=== PATIENT | female | born 1985 | race Caucasian/White ===

== ENCOUNTER → 2016-05-03 | Outpatient (CLI) | payer OTHER ==
[~2016-05-03] MED LIST: ACET50TA PO; BUPR10TASR PO; MOTR200T44 PO; PRENTAB7 PO
[2016-05-03 13:47] LABS: BASO % 0.5 % (0.0-1.0); EOS # 0.3 K/mm3 (0.0-0.50); EOS % 3.5 % (0.0-3.0); LARGE UNSTAINED CELL # 0.1 K/mm3 (0.0-0.4); LARGE UNSTAINED CELL % 1.4 % (0.0-4.0); LYMPH # 1.6 K/mm3 (1.5-4.5); LYMPH % 18.1 % (24.0-44.0); MEAN CORPUSCULAR HEMOGLOBIN 26.6 pg (27.0-33.0); MEAN CORPUSCULAR HGB CONC 31.6 g/dl (32.0-36.5); MEAN CORPUSCULAR VOLUME 84.2 fl (80.0-96.0); MONO # 0.4 K/mm3 (0.0-0.8); NEUTROPHILS # 6.3 K/mm3 (1.8-7.7); NEUTROPHILS % 72.5 % (36.0-66.0); PLATELET COUNT, AUTOMATED 331 k/mm3 (150-450); RED CELL DISTRIBUTION WIDTH 13.8 % (11.5-14.5); WHITE BLOOD COUNT 8.7 K/mm3 (4.0-10.0)
[2016-05-03 14:07] LABS: ALBUMIN 3.6 GM/DL (3.2-5.2); ALBUMIN/GLOBULIN RATIO 1.03 (1.00-1.93); ALKALINE PHOSPHATASE 133 U/L (45-117); ALT/SGPT 23 U/L (12-78); ANION GAP 10 MEQ/L (8-16); AST/SGOT 14 U/L (15-37); BILIRUBIN,TOTAL 0.3 MG/DL (0.2-1.0); BLOOD UREA NITROGEN 12 MG/DL (7-18); CALCIUM LEVEL 8.8 MG/DL (8.5-10.1); CARBON DIOXIDE LEVEL 26 MEQ/L (21-32); CHLORIDE LEVEL 105 MEQ/L (98-107); GLOMERULAR FILTRATION RATE > 60.0 (>60); GLUCOSE, FASTING 109 MG/DL (70-105); POTASSIUM SERUM 3.9 MEQ/L (3.5-5.1); SODIUM LEVEL 141 MEQ/L (136-145); TOTAL PROTEIN 7.1 GM/DL (6.4-8.2)
== END ==
LOC: M WUC 12:31
PROVIDERS: ATTEND Surgery
DX: Z01.812 Encounter for preprocedural laboratory examination (principal)

== ENCOUNTER → 2016-06-17 | Outpatient (CLI) | payer OTHER ==
[2016-06-17 15:17] LABS: BASO % 0.6 % (0.0-1.0); EOS # 0.5 K/mm3 (0.0-0.50); EOS % 8.4 % (0.0-3.0); LARGE UNSTAINED CELL # 0.1 K/mm3 (0.0-0.4); LARGE UNSTAINED CELL % 1.2 % (0.0-4.0); LYMPH # 1.4 K/mm3 (1.5-4.5); LYMPH % 20.5 % (24.0-44.0); MEAN CORPUSCULAR HEMOGLOBIN 27.7 pg (27.0-33.0); MEAN CORPUSCULAR HGB CONC 32.2 g/dl (32.0-36.5); MEAN CORPUSCULAR VOLUME 86.1 fl (80.0-96.0); MONO # 0.4 K/mm3 (0.0-0.8); MONO % 6.1 % (0.0-5.0); NEUTROPHILS % 63.2 % (36.0-66.0); PLATELET COUNT, AUTOMATED 229 k/mm3 (150-450); RED CELL DISTRIBUTION WIDTH 15.2 % (11.5-14.5); WHITE BLOOD COUNT 6.3 K/mm3 (4.0-10.0)
[2016-06-17 15:36] LABS: ALBUMIN/GLOBULIN RATIO 1.33 (1.00-1.93); ALKALINE PHOSPHATASE 98 U/L (45-117); ALT/SGPT 30 U/L (12-78); ANION GAP 12 MEQ/L (8-16); AST/SGOT 16 U/L (15-37); BILIRUBIN,TOTAL 0.5 MG/DL (0.2-1.0); BLOOD UREA NITROGEN 10 MG/DL (7-18); CALCIUM LEVEL 9.4 MG/DL (8.5-10.1); CARBON DIOXIDE LEVEL 24 MEQ/L (21-32); CHLORIDE LEVEL 106 MEQ/L (98-107); FERRITIN 15 NG/ML (8-252); GLOMERULAR FILTRATION RATE > 60.0 (>60); GLUCOSE, FASTING 75 MG/DL (70-105); MAGNESIUM LEVEL 1.8 MG/DL (1.8-2.4); PERCENT SATURATION 12.2 % (13.2-37.4); PHOSPHORUS LEVEL 3.2 MG/DL (2.5-4.9); POTASSIUM SERUM 3.8 MEQ/L (3.5-5.1); SODIUM LEVEL 142 MEQ/L (136-145); TOTAL IRON BINDING CAPACITY 296 UG/DL (250-450)
[2016-06-17 15:44] LABS: VITAMIN B12 LEVEL 1278 PG/ML (247-911)
[2016-06-18 11:12] LABS: PRETREATED FOLATE FOR RBCFOL 8.5 NG/ML
== END ==
LOC: M LAB 14:36
PROVIDERS: ATTEND Surgery
DX: K91.2 Postsurgical malabsorption, not elsewhere classified (principal); Z98.84 Bariatric surgery status

== ENCOUNTER 2016-08-03 11:41 | Emergency (ER) | payer MEDICAID, OTHER ==
[~2016-08-03] VITALS: Ht 165.1 cm; Wt 95.7 kg
[2016-08-03] MEDS ORDERED: VITA100T20 PO (11:57)
[2016-08-03] MEDS ORDERED: EFFE37.527 PO (11:57)
[2016-08-03] MEDS ORDERED: CALTTAB5 PO (11:57)
[2016-08-03] MEDS ORDERED: MULT1TAB18 PO (11:57)
[2016-08-03] MEDS ORDERED: [UNRECOGNIZED DRUG - CODE] PO (11:57)
[2016-08-03] MEDS ORDERED: NS 1,000 ML IV ONE (12:45)
[2016-08-03] MEDS ORDERED: ACETAMINOPHEN 325 MG TAB PO ONE (12:45)
[2016-08-03 13:31] LABS: BASO % 0.5 % (0.0-1.0); EOS # 0.1 K/mm3 (0.0-0.50); EOS % 1.5 % (0.0-3.0); LARGE UNSTAINED CELL # 0.1 K/mm3 (0.0-0.4); LARGE UNSTAINED CELL % 1.4 % (0.0-4.0); LYMPH # 0.7 K/mm3 (1.5-4.5); LYMPH % 7.5 % (24.0-44.0); MEAN CORPUSCULAR HEMOGLOBIN 29.9 pg (27.0-33.0); MEAN CORPUSCULAR HGB CONC 33.1 g/dl (32.0-36.5); MEAN CORPUSCULAR VOLUME 90.4 fl (80.0-96.0); MONO # 0.7 K/mm3 (0.0-0.8); MONO % 7.1 % (0.0-5.0); NEUTROPHILS # 7.8 K/mm3 (1.8-7.7); PLATELET COUNT, AUTOMATED 187 k/mm3 (150-450); RED CELL DISTRIBUTION WIDTH 15.3 % (11.5-14.5); WHITE BLOOD COUNT 9.5 K/mm3 (4.0-10.0)
[2016-08-03 13:43] LABS: INR 1.19
[2016-08-03 13:54] LABS: CONTROL LINE HCG INT CTR LINE PRESENT
[2016-08-03 14:02] LABS: ALBUMIN/GLOBULIN RATIO 0.94 (1.00-1.93); ALKALINE PHOSPHATASE 97 U/L (45-117); ALT/SGPT 16 U/L (12-78); AMYLASE 21 U/L (25-115); ANION GAP 7 MEQ/L (8-16); AST/SGOT 13 U/L (15-37); BILIRUBIN,DIRECT 0.4 MG/DL (0.0-0.2); BLOOD UREA NITROGEN 7 MG/DL (7-18); CALCIUM LEVEL 8.2 MG/DL (8.5-10.1); CARBON DIOXIDE LEVEL 27 MEQ/L (21-32); CHLORIDE LEVEL 103 MEQ/L (98-107); CREATININE FOR GFR 0.67 MG/DL (0.55-1.02); GLOMERULAR FILTRATION RATE > 60.0 (>60); GLUCOSE, FASTING 92 MG/DL (70-105); POTASSIUM SERUM 3.7 MEQ/L (3.5-5.1); SODIUM LEVEL 137 MEQ/L (136-145); TOTAL PROTEIN 6.2 GM/DL (6.4-8.2)
--- NOTE | 2016-08-03 14:56 | REP ---
CT ABDOMEN/PELVIS WITHOUT CONTRAST: CT abdomen/pelvis performed without oral or IV contrast. Sagittal and coronal reconstruction images performed. Comparison made with prior CT of 01/27/2010. Visualized lung bases demonstrate no infiltrate. Liver demonstrates two hypodense nodules in the left lobe, the larger of the two is 1.2 cm in diameter. These nodules were not seen on the prior study. The spleen, adrenals, pancreas, and kidneys appear grossly unremarkable. There is no abdominal aortic aneurysm. There is no adenopathy. There is no free air. There is no bowel wall thickening. There appears to be a small cystic structure in the right ovary possibly up to 2.8 cm in diameter. There is a small amount of free fluid in the pelvis. An IUD is seen in the uterus. The urinary bladder is not well distended and not well evaluated. IMPRESSION: Two hypodense nodules in the left lobe of the liver are new compared to prior study of 2009. The largest measures 1.2 cm in diameter. Recommend ultrasound to further evaluate. No adenopathy. No free air. No bowel wall thickening. Small amount of free fluid in the pelvis. There appears to be a small cystic structure in the right ovary, maximally 2.8 cm. Signed by Irwin Portillo MD 08/05/2016 06:58 P
[2016-08-03] MEDS ORDERED: LevoFLOXacin IV 750 MG in APPROPRIATE DILUENT 1 EA IV ONE (15:15)
[2016-08-03 16:06] VITALS: BP 134/87
[2016-08-03] MEDS ORDERED: LEVA750T PO (16:06)
--- NOTE | 2016-08-03 16:30 | REP ---
PELVIC ULTRASOUND: Real-time sonographic evaluation of the pelvis is performed utilizing transabdominal and endovaginal technique. The urinary bladder is collapsed. The uterus measures 9.1 x 4.6 x 6.6 cm. IUD is seen in the endometrial canal. The right ovary measures 4.3 x 3.2 x 3.8 cm. There is a simple cyst of the right ovary 3.2 x 2.6 x 3.1 cm. Left ovary measures 4.0 x 2.4 x 3.1 cm and contains a complex follicle 2.0 x 1.4 x 1.5 cm. There is mild free fluid. There is no ovarian torsion with blood flow seen in each ovary with duplex Doppler evaluation, RI right ovary 0.38 and left ovary 0.39. IMPRESSION: Simple right ovarian cyst 3.2 cm in diameter. Complex dominant follicle left ovary 2.0 cm in diameter. No torsion. Mild free fluid. Signed by Irwin Portillo MD 08/05/2016 06:59 P
--- NOTE | 2016-08-08 15:10 | ED PDOC ---
Post-Departure Follow-Up colby hatch faxed formal report of ct abd/p for fu Patti Gonsales MD Aug 08, 2016 15:10
== END 2016-08-03 17:16 | disposition home or self-care (01) ==
LOC: M ED 12:53
DX: N83.201 Unspecified ovarian cyst, right side (principal); N10 Acute pyelonephritis; F41.9 Anxiety disorder, unspecified; F33.9 Major depressive disorder, recurrent, unspecified; Z98.84 Bariatric surgery status; Z79.899 Other long term (current) drug therapy; Z88.5 Allergy status to narcotic agent; Z88.7 Allergy status to serum and vaccine; Z91.041 Radiographic dye allergy status; J30.89 Other allergic rhinitis

== ENCOUNTER → 2016-08-16 | Outpatient (CLI) | payer OTHER ==
[~2016-08-16] MED LIST changes: +CALTTAB5 PO; +EFFE37.527 PO; +LEVA750T PO; +MULT1TAB18 PO; +VITA100T20 PO; +[UNRECOGNIZED DRUG - CODE] PO
--- NOTE | 2016-08-16 07:33 | REP ---
Clinical: Follow-up indeterminate liver lesions by CT. Comparison: CT dated 08/03/2016. Findings: Evaluation of the liver is relatively normal with normal parenchymal echogenicity, contour and size. The two lesions identified on CT are not visualized by ultrasound and appear relatively hyperechoic and most compatible with hemangiomas measuring 12.9 mm maximal diameter in the medial segment left lobe and 12.8 mm maximal diameter in the medial segment left lobe adjacent to the portal vein. Pancreas is normal in appearance and echogenicity without focal pancreatic lesion identified. The gallbladder is normal and without gallstones, wall thickening, or pericholecystic fluid. No biliary ductal dilatation is appreciated and the common bile duct measures 3.9 mm diameter. Right kidney is normal in reniform shape and appearance without hydronephrosis, and measures 11.4 x 5.6 x 4.7 cm. No ascites in the visualized right upper quadrant. Visualized portions of the abdominal aorta normal. Impression: 1. Previously identified indeterminate lesions by CT correspond to hyperechoic masses most compatible with benign hemangiomas. 2. Remainder of the right upper quadrant abdominal ultrasound appears normal. Signed by Maico Mcneil MD 08/16/2016 07:24 A
== END ==
LOC: M RAD 06:34
PROVIDERS: ATTEND Nurse Practitioner Family
DX: R93.2 Abnormal findings on diagnostic imaging of liver and biliary tract (principal)

== ENCOUNTER → 2016-10-18 | Outpatient (REF) | payer OTHER ==
[~2016-10-18] MED LIST changes: -LEVA750T PO; +LEVA750T7 PO
== END ==
LOC: M SFHCPLAZ 13:47
PROVIDERS: ATTEND Nurse Practitioner Family
DX: Z00.00 Encounter for general adult medical examination without abnormal findings (principal); E78.4 Other hyperlipidemia; Z53.8 Procedure and treatment not carried out for other reasons

== ENCOUNTER → 2016-12-17 | Outpatient (CLI) | payer OTHER | LOC: M LAB 07:49 | PROVIDERS: ATTEND Nurse Practitioner Family | DX: Z00.00 Encounter for general adult medical examination without abnormal findings (principal) ==

== ENCOUNTER → 2016-12-17 | Outpatient (CLI) | payer OTHER ==
[2016-12-17 08:29] LABS: BASO % 0.5 % (0.0-1.0); EOS # 0.3 10^3/uL (0.0-0.50); EOS % 4.4 % (0.0-3.0); LYMPH # 1.8 10^3/uL (1.5-4.5); LYMPH % 31.8 % (24.0-44.0); MEAN CORPUSCULAR HEMOGLOBIN 30.6 pg (27.0-33.0); MEAN CORPUSCULAR HGB CONC 33.3 g/dl (32.0-36.5); MEAN CORPUSCULAR VOLUME 91.7 fl (80.0-96.0); MONO # 0.4 10^3/uL (0.0-0.8); MONO % 7.5 % (0.0-5.0); NEUTROPHILS # 3.1 10^3/uL (1.8-7.7); NEUTROPHILS % 55.8 % (36.0-66.0); PLATELET COUNT, AUTOMATED 324 10^3/uL (150-450); RED CELL DISTRIBUTION WIDTH 12.8 % (11.5-14.5); WHITE BLOOD COUNT 5.6 10^3/uL (4.0-10.0)
[2016-12-17 09:09] LABS: ALBUMIN 3.8 GM/DL (3.2-5.2); ALBUMIN/GLOBULIN RATIO 1.19 (1.00-1.93); ALKALINE PHOSPHATASE 118 U/L (45-117); ALT/SGPT 25 U/L (12-78); ANION GAP 8 MEQ/L (8-16); AST/SGOT 13 U/L (15-37); BILIRUBIN,TOTAL 0.6 MG/DL (0.2-1.0); BLOOD UREA NITROGEN 9 MG/DL (7-18); CALCIUM LEVEL 9.7 MG/DL (8.5-10.1); CARBON DIOXIDE LEVEL 30 MEQ/L (21-32); CHLORIDE LEVEL 104 MEQ/L (98-107); CREATININE FOR GFR 0.79 MG/DL (0.55-1.02); FERRITIN 23 NG/ML (8-252); GLOMERULAR FILTRATION RATE > 60.0 (>60); GLUCOSE, FASTING 81 MG/DL (70-105); MAGNESIUM LEVEL 2.2 MG/DL (1.8-2.4); PERCENT SATURATION 42.8 % (13.2-45.0); PHOSPHORUS LEVEL 3.9 MG/DL (2.5-4.9); POTASSIUM SERUM 4.4 MEQ/L (3.5-5.1); SODIUM LEVEL 142 MEQ/L (136-145); TOTAL IRON BINDING CAPACITY 299 UG/DL (250-450)
[2016-12-17 11:03] LABS: VITAMIN B12 LEVEL 889 PG/ML (247-911)
[2016-12-17 11:40] LABS: PRETREATED FOLATE FOR RBCFOL 12.4 NG/ML
== END ==
LOC: M LAB 07:47
PROVIDERS: ATTEND Surgery
DX: K91.2 Postsurgical malabsorption, not elsewhere classified (principal)

== ENCOUNTER → 2016-12-27 | Outpatient (REF) | payer MEDICAID, OTHER | LOC: EEVIPCON 15:38 → M SFHCPLAZ 15:38 | PROVIDERS: ATTEND Nurse Practitioner Adult Health | DX: R35.0 Frequency of micturition (principal) ==

== ENCOUNTER → 2017-01-13 | Outpatient (REF) | payer OTHER, MEDICAID | LOC: M SFHCPLAZ 15:38 | PROVIDERS: ATTEND Nurse Practitioner Family | DX: N39.0 Urinary tract infection, site not specified (principal) ==

== ENCOUNTER → 2017-01-18 | Outpatient (CLI) | payer OTHER ==
--- NOTE | 2017-01-18 16:51 | REP ---
Clinical: Hematuria. Technique: Real time hoff scale ultrasound examination using curved array transducer. Findings: Bilateral kidneys are normal in contour, size, echogenicity and reniform shape without hydronephrosis, nephrolithiasis, cystic or renal mass lesion. Perinephric fluid collections are identified. Right kidney measures 11.1 x 4.8 x 4.2 cm. Left kidney measures 10.5 x 5.3 x 5.6 cm. The bladder is normal in appearance without wall thickening or mass lesion. Bilateral ureteral jets are identified. Prevoid volume equals 103 ml. Postvoid volume equals 4 ml. Postvoid residual equals 3.8 %. Impression: Normal renal and bladder ultrasound. Signed by Maico Mcneil MD 01/18/2017 04:43 P
== END ==
LOC: M RAD 13:57
PROVIDERS: ATTEND Nurse Practitioner Family
DX: N39.0 Urinary tract infection, site not specified (principal); R31.9 Hematuria, unspecified

== ENCOUNTER → 2017-02-11 | Outpatient (REF) | payer OTHER ==
[~2017-02-11] MED LIST changes: +EFFE75CA75 PO; +LEVA1TAB PO; +MACR100C43 PO; +MECL-68 PO
[2017-02-11 13:39] LABS: MICROSCOPIC EXAM PERFORMED
[2017-02-11 13:40] LABS: BACTERIA, URINE LARGE AMOUNT; HYALINE CAST, URINE NONE SEEN /lpf (0-1); SQUAMOUS EPITHELIAL CELL URINE LARGE AMOUNT /hpf (SMALL AMT); WBC, URINE 30-40 /hpf (0-3)
[2017-02-11 13:41] LABS: CALCIUM OXALATE CRYSTALS,URINE SMALL AMOUNT /hpf
[2017-02-13 00:06] LABS: Candida species Negative (Negative); Gardnerella vaginalis Negative (Negative); Trichamonas vaginalis Negative (Negative)
== END ==
LOC: M SMT 13:26
PROVIDERS: ATTEND Specialist
DX: N39.0 Urinary tract infection, site not specified (principal)

== ENCOUNTER 2017-02-16 09:35 | Emergency (ER) | payer OTHER ==
[~2017-02-16 09:35] MED LIST changes: -EFFE75CA75 PO; -LEVA1TAB PO; -MACR100C43 PO; -MECL-68 PO
[2017-02-16] MEDS ORDERED: MACR100C43 PO (09:45)
[2017-02-16] MEDS ORDERED: EFFE75CA75 PO (09:47)
[2017-02-16] MEDS ORDERED: MECLIZINE 25 MG TABLET PO ONE (10:30)
[2017-02-16] MEDS ORDERED: ONDANSETRON 4MG/2ML VIAL (J2405) IV ONE (10:30)
[2017-02-16 10:38] LABS: BASO # 0.1 10^3/uL (0.0-0.2); BASO % 0.7 % (0.0-1.0); EOS # 0.5 10^3/uL (0.0-0.50); EOS % 6.8 % (0.0-3.0); IMMATURE GRANULOCYTE % 0.3 % (0-0); LYMPH # 1.4 10^3/uL (1.5-4.5); LYMPH % 18.7 % (24.0-44.0); MEAN CORPUSCULAR HEMOGLOBIN 30.2 pg (27.0-33.0); MEAN CORPUSCULAR HGB CONC 32.9 g/dl (32.0-36.5); MONO # 0.6 10^3/uL (0.0-0.8); MONO % 8.8 % (0.0-5.0); NEUTROPHILS # 4.7 10^3/uL (1.8-7.7); NEUTROPHILS % 64.7 % (36.0-66.0); PLATELET COUNT, AUTOMATED 295 10^3/uL (150-450); RED CELL DISTRIBUTION WIDTH 12.7 % (11.5-14.5); WHITE BLOOD COUNT 7.3 10^3/uL (4.0-10.0)
[2017-02-16 10:44] LABS: ANION GAP 7 MEQ/L (8-16); BLOOD UREA NITROGEN 10 MG/DL (7-18); CALCIUM LEVEL 8.7 MG/DL (8.5-10.1); CARBON DIOXIDE LEVEL 27 MEQ/L (21-32); CHLORIDE LEVEL 108 MEQ/L (98-107); CREATININE FOR GFR 0.67 MG/DL (0.55-1.02); GLOMERULAR FILTRATION RATE > 60.0 (>60); GLUCOSE, FASTING 40 MG/DL (70-105); POTASSIUM SERUM 3.6 MEQ/L (3.5-5.1); SODIUM LEVEL 142 MEQ/L (136-145)
[2017-02-16] MEDS ORDERED: LevoFLOXacin IV 500 MG in APPROPRIATE DILUENT 1 EA IV ONE (11:00)
[2017-02-16] MEDS ORDERED: MECL-68 PO (12:21)
[2017-02-16] MEDS ORDERED: LEVA1TAB PO (12:21)
[2017-02-16 12:35] VITALS: BP 141/97
== END 2017-02-16 12:42 | disposition home or self-care (01) ==
LOC: EDBD 09:35 → M ED 09:35
DX: N39.0 Urinary tract infection, site not specified (principal); F33.9 Major depressive disorder, recurrent, unspecified; Z87.448 Personal history of other diseases of urinary system; Z79.899 Other long term (current) drug therapy; Z91.041 Radiographic dye allergy status; Z88.5 Allergy status to narcotic agent; Z91.048 Other nonmedicinal substance allergy status; Z88.7 Allergy status to serum and vaccine
CPT/HCPCS: 80048; 85025; 96374; 96375; 99284; J1956

== ENCOUNTER → 2017-03-25 | Outpatient (REF) | payer OTHER, MEDICAID ==
[2017-03-25 20:14] LABS: HYALINE CAST, URINE NONE SEEN /lpf (0-1); RBC, URINE NONE SEEN /hpf (0-3); SQUAMOUS EPITHELIAL CELL URINE SMALL AMOUNT /hpf (SMALL AMT)
[2017-03-25 20:15] LABS: BACTERIA, URINE SMALL AMOUNT; MICROSCOPIC EXAM PERFORMED
== END ==
LOC: M SMT 17:04
DX: N39.0 Urinary tract infection, site not specified (principal)

== ENCOUNTER → 2017-07-04 | Outpatient (CLI) | payer OTHER ==
[2017-07-04 18:02] LABS: BASO # 0.1 10^3/uL (0.0-0.2); BASO % 0.8 % (0.0-1.0); EOS # 0.3 10^3/uL (0.0-0.50); EOS % 3.5 % (0.0-3.0); HEMATOCRIT 43.4 % (36.0-47.0); HEMOGLOBIN 14.1 g/dl (12.0-15.5); IMMATURE GRANULOCYTE % 0.3 % (0-3.0); LYMPH # 2.1 10^3/uL (1.5-4.5); LYMPH % 23.5 % (24.0-44.0); MEAN CORPUSCULAR HEMOGLOBIN 30.6 pg (27.0-33.0); MEAN CORPUSCULAR HGB CONC 32.5 g/dl (32.0-36.5); MEAN CORPUSCULAR VOLUME 94.1 fl (80.0-96.0); MONO # 0.6 10^3/uL (0.0-0.8); MONO % 6.1 % (0.0-5.0); NEUTROPHILS # 5.9 10^3/uL (1.8-7.7); NEUTROPHILS % 65.8 % (36.0-66.0); PLATELET COUNT, AUTOMATED 325 10^3/uL (150-450); RED BLOOD COUNT 4.61 10^6/uL (4.00-5.40); RED CELL DISTRIBUTION WIDTH 12.4 % (11.5-14.5)
[2017-07-04 18:03] LABS: HEMATOCRIT 43.4 % (36.0-47.0)
[2017-07-04 18:19] LABS: ESTIMATED AVERAGE GLUCOSE 103 MG/DL (60-110); HEMOGLOBIN A1c 5.2 %
[2017-07-04 19:10] LABS: ALBUMIN 3.8 GM/DL (3.2-5.2); ALBUMIN/GLOBULIN RATIO 1.23 (1.00-1.93); ALKALINE PHOSPHATASE 108 U/L (45-117); ALT/SGPT 28 U/L (12-78); ANION GAP 7 MEQ/L (8-16); AST/SGOT 18 U/L (7-37); BILIRUBIN,TOTAL 0.3 MG/DL (0.2-1.0); BLOOD UREA NITROGEN 12 MG/DL (7-18); CALCIUM LEVEL 8.8 MG/DL (8.5-10.1); CARBON DIOXIDE LEVEL 31 MEQ/L (21-32); CHLORIDE LEVEL 108 MEQ/L (98-107); CREATININE FOR GFR 0.78 MG/DL (0.55-1.30); FERRITIN 13 NG/ML (8-252); GLOMERULAR FILTRATION RATE > 60.0 (>60); GLUCOSE, FASTING 94 MG/DL (70-100); IRON (FE) 83 UG/DL (50-170); PERCENT SATURATION 25.2 % (13.2-45.0); PHOSPHORUS LEVEL 2.9 MG/DL (2.5-4.9); POTASSIUM SERUM 3.9 MEQ/L (3.5-5.1); SODIUM LEVEL 146 MEQ/L (136-145); TOTAL IRON BINDING CAPACITY 329 UG/DL (250-450); TOTAL PROTEIN 6.9 GM/DL (6.4-8.2)
[2017-07-04 19:12] LABS: TOTAL 25(OH) VITAMIN D 40.3 NG/ML (30.0-100.0); VITAMIN B12 LEVEL 611 PG/ML (247-911)
[2017-07-05 11:51] LABS: PRETREATED FOLATE FOR RBCFOL 12.5 NG/ML; RBC FOLATE 604.8 NG/ML (280-791)
== END ==
LOC: M LAB 17:21
DX: K91.2 Postsurgical malabsorption, not elsewhere classified (principal)
CPT/HCPCS: 83550

== ENCOUNTER → 2017-07-12 | Outpatient (REF) | payer OTHER, MEDICAID | LOC: M LAB REF 10:15 | DX: J02.9 Acute pharyngitis, unspecified (principal) ==

== ENCOUNTER → 2018-01-04 | Outpatient (REF) | payer MEDICAID ==
[2018-01-04 19:47] LABS: BACTERIA, URINE AUTO NEGATIVE (NEGATIVE); CALCIUM OXALATE CRYSTALS LARGE; MUCUS, URINE SMALL (NEGATIVE); RBC, URINE AUTO 7 /HPF (0-3); SQUAMOUS EPITHELIAL CELL UR AU 0 /HPF (0-6); WBC, URINE AUTO 3 /HPF (0-3)
== END ==
LOC: M SMT 17:03
DX: N39.0 Urinary tract infection, site not specified (principal)
CPT/HCPCS: 81015

== ENCOUNTER → 2018-02-10 | Outpatient (REF) | payer MEDICAID ==
[2018-02-10 19:42] LABS: CHLAMYDIA DNA AMPLIFICATION NEGATIVE (NEGATIVE); GC DNA AMPLIFICATION NEGATIVE (NEGATIVE)
[2018-02-16 14:24] LABS: HPV HYBRID CAPTURE II Negative (Negative)
== END ==
LOC: M LAB REF 16:55
DX: Z12.4 Encounter for screening for malignant neoplasm of cervix (principal); Z11.3 Encounter for screening for infections with a predominantly sexual mode of transmission
CPT/HCPCS: 87591

== ENCOUNTER → 2018-03-31 | Outpatient (CLI) | payer OTHER ==
[~2018-03-31] MED LIST changes: -ACET50TA PO; +EFFE37.5 PO; -EFFE37.527 PO; +EFFE75CA2 PO; +LEVA250T13 PO; +MACR100C43 PO; +MAPA500T2 PO; +MECL-68 PO
[2018-03-31 09:02] LABS: HEMATOCRIT 44.1 % (36.0-47.0); HEMOGLOBIN 14.5 g/dl (12.0-15.5); MEAN CORPUSCULAR HEMOGLOBIN 30.1 pg (27.0-33.0); MEAN CORPUSCULAR HGB CONC 32.9 g/dl (32.0-36.5); MEAN CORPUSCULAR VOLUME 91.5 fl (80.0-96.0); PLATELET COUNT, AUTOMATED 308 10^3/uL (150-450); RED BLOOD COUNT 4.82 10^6/uL (4.00-5.40); WHITE BLOOD COUNT 6.7 10^3/uL (4.0-10.0)
[2018-03-31 09:36] LABS: ALBUMIN 3.8 GM/DL (3.2-5.2); ALT/SGPT 30 U/L (12-78); BILIRUBIN,TOTAL 0.4 MG/DL (0.2-1.0); BLOOD UREA NITROGEN 8 MG/DL (7-18); CARBON DIOXIDE LEVEL 29 MEQ/L (21-32); CHLORIDE LEVEL 105 MEQ/L (98-107); CHOLESTEROL LEVEL 183 MG/DL (<200); CREATININE FOR GFR 0.64 MG/DL (0.55-1.30); FREE T4 0.93 NG/DL (0.76-1.46); GLOMERULAR FILTRATION RATE > 60.0 (>60); GLUCOSE, FASTING 83 MG/DL (70-100); HDL CHOLESTEROL 57 MG/DL (>40); LDL CHOLESTEROL 112 MG/DL (<100); NON-HDL-C 126 MG/DL; POTASSIUM SERUM 4.7 MEQ/L (3.5-5.1); SODIUM LEVEL 142 MEQ/L (136-145); TOTAL PROTEIN 6.4 GM/DL (6.4-8.2); TRIGLYCERIDES LEVEL 72 MG/DL (<150)
== END ==
LOC: M LAB 07:49
PROVIDERS: ATTEND Nurse Practitioner Family
DX: Z00.00 Encounter for general adult medical examination without abnormal findings (principal)

== ENCOUNTER → 2018-11-29 | Outpatient (REF) | payer OTHER ==
[~2018-11-29] MED LIST changes: -VITA100T20 PO; +VITA100T51 PO
[2018-11-29 12:39] LABS: HEMOGLOBIN 14.3 g/dl (12.0-15.5); MEAN CORPUSCULAR HEMOGLOBIN 30.8 pg (27.0-33.0); MEAN CORPUSCULAR HGB CONC 32.5 g/dl (32.0-36.5); MEAN CORPUSCULAR VOLUME 94.8 fl (80.0-96.0); PLATELET COUNT, AUTOMATED 280 10^3/uL (150-450); RED BLOOD COUNT 4.64 10^6/uL (4.00-5.40); WHITE BLOOD COUNT 5.5 10^3/uL (4.0-10.0)
[2018-11-29 13:21] LABS: ALBUMIN 3.6 GM/DL (3.2-5.2); ALT/SGPT 17 U/L (12-78); BILIRUBIN,TOTAL 0.5 MG/DL (0.2-1.0); BLOOD UREA NITROGEN 11 MG/DL (7-18); CALCIUM LEVEL 8.8 MG/DL (8.5-10.1); CARBON DIOXIDE LEVEL 29 MEQ/L (21-32); CHLORIDE LEVEL 105 MEQ/L (98-107); CHOLESTEROL LEVEL 174 MG/DL (<200); CHOLESTEROL RISK RATIO 2.949 (<5); CREATININE FOR GFR 0.75 MG/DL (0.55-1.30); FERRITIN 11 NG/ML (8-252); FREE T4 0.82 NG/DL (0.76-1.46); GLOMERULAR FILTRATION RATE > 60.0 (>60); GLUCOSE, FASTING 77 MG/DL (70-100); HDL CHOLESTEROL 59 MG/DL (>40); IRON (FE) 101 UG/DL (50-170); LDL CHOLESTEROL 102 MG/DL (<100); NON-HDL-C 115 MG/DL; PERCENT SATURATION 31.1 % (13.2-45.0); POTASSIUM SERUM 4.6 MEQ/L (3.5-5.1); SODIUM LEVEL 141 MEQ/L (136-145); TOTAL IRON BINDING CAPACITY 325 UG/DL (250-450); TOTAL PROTEIN 6.5 GM/DL (6.4-8.2); TRIGLYCERIDES LEVEL 66 MG/DL (<150)
[2018-11-29 13:24] LABS: TOTAL 25(OH) VITAMIN D 29.8 NG/ML (30.0-100.0); VITAMIN B12 LEVEL 657 PG/ML (247-911)
== END ==
LOC: M SFHCPLAZ 08:50 → M SFHCADAM 08:53
PROVIDERS: ATTEND Nurse Practitioner Family
DX: Z00.00 Encounter for general adult medical examination without abnormal findings (principal); E78.5 Hyperlipidemia, unspecified; Z98.84 Bariatric surgery status; E55.9 Vitamin D deficiency, unspecified; R53.83 Other fatigue

== ENCOUNTER → 2019-08-28 | Outpatient (CLI) | payer OTHER, MEDICAID ==
[~2019-08-28] MED LIST changes: -MECL-68 PO; +MECL1TAB31 PO
--- NOTE | 2019-08-28 14:20 | REPPI ---
RIGHT WRIST SERIES: Four views. HISTORY: Neuropathy. FINDINGS: Four views right wrist demonstrate overall normal mineralization. There is a small cyst in the triquetrum. Joint spaces are preserved. Periarticular soft tissues are unremarkable. IMPRESSION: Negative radiographs of the right wrist. Electronically Signed by Barry Vásquez MD 08/28/2019 05:15 P
--- NOTE | 2019-08-28 14:20 | REPPI ---
CERVICAL SPINE SERIES: Seven views. HISTORY: Neuropathy. FINDINGS: Lateral views done in flexion/extension and neutral position show preserved vertebral body heights and normal alignment. Disc spaces are maintained. No subluxation or instability is seen. Oblique images demonstrate intact neural foramina bilaterally at each cervical level and normally aligned facets. AP and open mouth odontoid views show no abnormality. IMPRESSION: Negative cervical spine radiographs. Electronically Signed by Barry Vásquez MD 08/28/2019 05:15 P
== END ==
LOC: M PLAIMG 10:07
PROVIDERS: ATTEND Physician Assistant Medical
DX: G62.9 Polyneuropathy, unspecified (principal)

== ENCOUNTER → 2019-12-03 | Outpatient (REF) | payer OTHER | LOC: M SFHCWAGY 13:04 | PROVIDERS: ATTEND Advanced Practice Midwife | DX: Z12.4 Encounter for screening for malignant neoplasm of cervix (principal) ==

== ENCOUNTER → 2020-06-24 | Outpatient (REF) | payer OTHER ==
[2020-06-24 14:59] LABS: HEMATOCRIT 39.1 % (36.0-47.0); HEMOGLOBIN 12.2 g/dl (12.0-15.5); MEAN CORPUSCULAR HEMOGLOBIN 27.7 pg (27.0-33.0); MEAN CORPUSCULAR HGB CONC 31.2 g/dl (32.0-36.5); MEAN CORPUSCULAR VOLUME 88.7 fl (80.0-96.0); PLATELET COUNT, AUTOMATED 375 10^3/uL (150-450); RED BLOOD COUNT 4.41 10^6/uL (4.00-5.40); WHITE BLOOD COUNT 7.3 10^3/uL (4.0-10.0)
[2020-06-24 15:21] LABS: ALT/SGPT 18 U/L (12-78); BILIRUBIN,TOTAL 0.4 MG/DL (0.2-1.0); GLOMERULAR FILTRATION RATE > 60.0 (>60); IRON (FE) 54 UG/DL (50-170); LDH LACTATE DEHYDROGENASE 164 U/L (84-246); URIC ACID 3.4 MG/DL (2.6-6.0)
[2020-06-24 15:22] LABS: CREATININE,RANDOM URINE 64.7 MG/DL; TOTAL PROTEIN,RANDOM URINE 13.7 MG/DL (0.0-12.0)
[2020-06-24 15:32] LABS: VITAMIN B12 LEVEL 526 PG/ML (247-911)
[2020-06-24 15:34] LABS: FOLATE > 24.0 NG/ML (>5.4)
[2020-06-24 16:11] LABS: HEPATITIS C VIRUS ABY INDEX < 0.0 INDEX (<0.8)
[2020-06-24 16:41] LABS: HEMOGLOBIN A1c 5.4 %
== END ==
LOC: M PLALAB 10:34
PROVIDERS: ATTEND Advanced Practice Midwife
DX: O09.511 Supervision of elderly primigravida, first trimester (principal)

== ENCOUNTER → 2020-07-11 | Outpatient (REF) | payer OTHER ==
[~2020-07-11] MED LIST changes: +NITR100C2
== END ==
LOC: M SFHCWAGY 12:48
PROVIDERS: ATTEND Advanced Practice Midwife
DX: R35.0 Frequency of micturition (principal)

== ENCOUNTER 2020-07-12 12:43 | Emergency (ER) | payer OTHER ==
[~2020-07-12] VITALS: Ht 167.6 cm; Wt 96.4 kg
[~2020-07-12 12:43] MED LIST changes: -NITR100C2
[2020-07-12] MEDS ORDERED: NITR100C2 (12:50)
[2020-07-12 13:22] LABS: BASO # 0.1 10^3/uL (0.0-0.2); BASO % 0.6 % (0.0-1.0); EOS # 0.5 10^3/uL (0.0-0.5); HEMATOCRIT 38.4 % (36.0-47.0); HEMOGLOBIN 12.4 g/dl (12.0-15.5); MEAN CORPUSCULAR HEMOGLOBIN 27.9 pg (27.0-33.0); MEAN CORPUSCULAR HGB CONC 32.3 g/dl (32.0-36.5); MEAN CORPUSCULAR VOLUME 86.5 fl (80.0-96.0); MONO # 0.7 10^3/uL (0.0-0.8); MONO % 7.4 % (2.0-8.0); NEUTROPHILS % 64.7 % (36.0-66.0); PLATELET COUNT, AUTOMATED 356 10^3/uL (150-450); RED BLOOD COUNT 4.44 10^6/uL (4.00-5.40); WHITE BLOOD COUNT 9.3 10^3/uL (4.0-10.0)
[2020-07-12 13:35] LABS: APPEARANCE, URINE CLEAR (CLEAR); BACTERIA, URINE AUTO 1+ (NEGATIVE); BILIRUBIN, URINE AUTO NEGATIVE (NEGATIVE); BLOOD, URINE BLOOD 2+ (NEGATIVE); COLOR, URINE YELLOW (YELLOW); GLUCOSE, URINE (UA) AUTO NEGATIVE (NEGATIVE); KETONE, URINE AUTO NEGATIVE (NEGATIVE); LEUKOCYTE ESTERASE, URINE AUTO 2+ (NEGATIVE); MUCUS, URINE SMALL (NEGATIVE); NITRITE, URINE AUTO NEGATIVE (NEGATIVE); PROTEIN, URINE AUTO NEGATIVE (NEGATIVE); RBC, URINE AUTO 1 /HPF (0-3); SPECIFIC GRAVITY URINE AUTO 1.015 (1.002-1.035); SQUAMOUS EPITHELIAL CELL UR AU 0 /HPF (0-6); WBC, URINE AUTO 3 /HPF (0-3)
--- NOTE | 2020-07-12 14:14 | REP ---
INDICATION: VAGINAL BLEEDING. COMPARISON: None TECHNIQUE: Transabdominal FINDINGS: Multiple ultrasonographic images of the uterus show an anechoic structure within the endometrial cavity with patchy increased echoes surrounding it consistent with a decidual reaction. Within the gestational sac there is echogenic material consistent with a pole the mean crown-rump length measurement of which is consistent with an 8 week 5 day gestational age. Doppler interrogation of the pole shows no evidence of cardiac activity. IMPRESSION: Ultrasonographic findings consistent with demise. <Electronically signed by Ramy Armando > 07/12/20 1023
[2020-07-12 14:56] VITALS: BP 138/74
== END 2020-07-12 14:58 | disposition home or self-care (01) ==
LOC: M ED 12:43
DX: O02.1 Missed abortion (principal); Z3A.08 8 weeks gestation of pregnancy; F41.9 Anxiety disorder, unspecified; Z98.84 Bariatric surgery status; Z79.899 Other long term (current) drug therapy; Z88.7 Allergy status to serum and vaccine; Z88.5 Allergy status to narcotic agent; Z91.041 Radiographic dye allergy status; Z91.048 Other nonmedicinal substance allergy status

== ENCOUNTER → 2020-07-25 | Outpatient (REF) | payer OTHER ==
[~2020-07-25] MED LIST changes: +NITR100C2
== END ==
LOC: M PLALAB 12:23
PROVIDERS: ATTEND Advanced Practice Midwife
DX: O03.9 Complete or unspecified spontaneous abortion without complication (principal)

== ENCOUNTER → 2020-08-07 | Outpatient (CLI) | payer OTHER, MEDICAID | LOC: M WUC 12:06 | PROVIDERS: ATTEND Advanced Practice Midwife | DX: O03.9 Complete or unspecified spontaneous abortion without complication (principal) ==

== ENCOUNTER → 2020-09-19 | Outpatient (CLI) | payer OTHER ==
[2020-09-19 12:01] LABS: HEMOGLOBIN 7.9 g/dl (12.0-15.5); MEAN CORPUSCULAR HEMOGLOBIN 21.1 pg (27.0-33.0); MEAN CORPUSCULAR HGB CONC 28.2 g/dl (32.0-36.5); MEAN CORPUSCULAR VOLUME 74.7 fl (80.0-96.0); PLATELET COUNT, AUTOMATED 463 10^3/uL (150-450); RED BLOOD COUNT 3.75 10^6/uL (4.00-5.40); WHITE BLOOD COUNT 4.9 10^3/uL (4.0-10.0)
[2020-09-19 12:38] LABS: ALBUMIN 3.7 GM/DL (3.2-5.2); ALT/SGPT 62 U/L (12-78); BILIRUBIN,TOTAL 0.5 MG/DL (0.2-1.0); BLOOD UREA NITROGEN 13 MG/DL (7-18); CALCIUM LEVEL 8.9 MG/DL (8.5-10.1); CARBON DIOXIDE LEVEL 29 MEQ/L (21-32); CHLORIDE LEVEL 110 MEQ/L (98-107); CHOLESTEROL LEVEL 215 MG/DL (<200); CHOLESTEROL RISK RATIO 3.208 (<5); FREE T4 0.77 NG/DL (0.76-1.46); GLOMERULAR FILTRATION RATE > 60.0 (>60); GLUCOSE, FASTING 80 MG/DL (70-100); HDL CHOLESTEROL 67 MG/DL (>40); IRON (FE) 13 UG/DL (50-170); LDL CHOLESTEROL 131 MG/DL (<100); NON-HDL-C 148 MG/DL; POTASSIUM SERUM 4.4 MEQ/L (3.5-5.1); SODIUM LEVEL 137 MEQ/L (136-145); TOTAL PROTEIN 6.8 GM/DL (6.4-8.2); TRIGLYCERIDES LEVEL 87 MG/DL (<150)
[2020-09-19 12:43] LABS: FOLATE > 24.0 NG/ML; VITAMIN B12 LEVEL 567 PG/ML
[2020-09-24 13:09] LABS: VITAMIN A, RETINOL LEVEL 41.1 ug/dL (18.9-57.3); VITAMIN E(ALPHA TOCOPHEROL) 11.7 mg/L (5.9-19.4); VITAMIN E(GAMMA TOCOPHEROL) 0.9 mg/L (0.7-4.9); VITAMIN K1 0.21 ng/mL (0.10-2.20)
== END ==
LOC: M LAB 10:48
PROVIDERS: ATTEND Physician Assistant
DX: Z98.84 Bariatric surgery status (principal); F41.9 Anxiety disorder, unspecified; E78.2 Mixed hyperlipidemia

== ENCOUNTER 2020-09-30 11:29 | Observation (INO) | payer OTHER ==
[~2020-09-30] VITALS: Ht 165.1 cm; Wt 98.4 kg
[2020-09-30] VITALS (10 sets, daily range): BP systolic 121–137; BP diastolic 62–82
[2020-09-30] MEDS ORDERED: VENL150C43 PO (12:37)
[2020-09-30 13:11] LABS: BASO # 0.1 10^3/uL (0.0-0.2); BASO % 1.2 % (0.0-1.0); EOS # 0.3 10^3/uL (0.0-0.5); EOS % 5.8 % (0.0-3.0); HEMATOCRIT 27.1 % (36.0-47.0); HEMOGLOBIN 7.7 g/dl (12.0-15.5); LYMPH # 2.1 10^3/uL (1.5-5.0); LYMPH % 36.5 % (24.0-44.0); MEAN CORPUSCULAR HEMOGLOBIN 20.4 pg (27.0-33.0); MEAN CORPUSCULAR HGB CONC 28.4 g/dl (32.0-36.5); MEAN CORPUSCULAR VOLUME 71.7 fl (80.0-96.0); MONO # 0.7 10^3/uL (0.0-0.8); MONO % 12.7 % (2.0-8.0); NEUTROPHILS # 2.6 10^3/uL (1.5-8.5); NEUTROPHILS % 43.6 % (36.0-66.0); PLATELET COUNT, AUTOMATED 423 10^3/uL (150-450); RED BLOOD COUNT 3.78 10^6/uL (4.00-5.40); WHITE BLOOD COUNT 5.8 10^3/uL (4.0-10.0)
[2020-09-30 14:21] LABS: PERCENT SATURATION 2.6 % (13.2-45.0)
[2020-09-30 15:25] LABS: RSV AMPLIFICATION NEGATIVE (NEGATIVE)
[2020-09-30] MEDS ORDERED: FLINCHW16 PO (15:25)
[2020-09-30] MEDS ORDERED: MELA3TAB30 PO (15:25)
[2020-09-30] MEDS ORDERED: MULTIVITAMINS/MINERALS THERAP 1 TAB PO ONE (16:00)
[2020-09-30] MEDS ORDERED: NS 1,000 ML IV SCH (16:00)
[2020-09-30] MEDS ORDERED: RAMELTEON 8 MG TAB (ROZEREM) PO PRN (16:00)
--- NOTE | 2020-09-30 16:47 | HPEPDOC ---
General Date of Admission Sep 30, 2020 Date of Service: Sep 30, 2020 Chief Complaint The patient is a 34-year-old female admitted with a reason for visit of Dizzy / Tired. Source: Patient History of Present Illness Mrs. Lazcano is a 34 year old female with recent miscarriage in July who is here for lightheadedness/dizziness, fatigue, and dyspnea, and found to have symptomatic iron deficiency anemia. After her miscarriage in July, she had longer than normal menses and restless leg syndrome. She thought that it was related to her miscarriage. About a month ago, she started to notice dyspnea with exertion, easy fatigability, and lightheaded and dizziness. Then form 09/09/20 to 09/14/20, her menses was heavier than normal. About a week and a half ago, she started to have eye discomfort that improves with closing eye lids and tingling in her fingertips. Her PCP ordered CBC on 09/19/20 which demonstrated microcytic anemia with hemoglobin of 7.9 and MCV of 74.7. Baseline hemoglobin was 12. She is pending approval for IV iron. Otherwise, she had Bariatric Surgery in 2016. She was on supplements, but discontinued about a year ago due to the number of pills she was taking. She denies any changes in stool, blood in stool, stool turning darker than normal, abdominal pain, nausea, blood in urine, or coughing up blood. Patient will be placed in observation for acute symptomatic anemia. Home Medications Scheduled Pediatric Multivitamin No.49 (Flintstones Gummies) 1 Each Tab.chew, 1 CHW PO DAILY, (Reported) Venlafaxine HCl (Venlafaxine HCl ER) 150 Mg Cap.er.24h, 150 MG PO DAILY, (Repo rted) Scheduled PRN Melatonin (Melatonin) 3 Mg Tablet, 3 MG PO QHS PRN for RESTLESS LEGS, (Reported) Allergies Coded Allergies: morphine (Verified Allergy, Severe, anaphylaxis, 09/30/20) oseltamivir (Verified Allergy, Severe, hives, 09/30/20) Contrast Media (Verified Adverse Reaction, Intermediate, hgh blood pressure, 09/30/20) WOOL (FABRIC) (Verified Adverse Reaction, Intermediate, pruritis, 09/30/20) Uncoded Allergies: menningococcal vaccine (Allergy, Intermediate, altered sensorium, 09/30/20) Past Medical History Medical History 1. Hypertension during 2. Binge eating disorder 3. Depression and anxiety Surgical History 1. Partial nephrectomy on right 2. Appendectomy 3. 4. Laproscopic [id number] gastric bypass Family History Father: History of hyperlipidemia Mother: history of osteoporosis and depression Social History * Smoker: former Smoker (Quit in 2017) Alcohol: rarely Drugs: denies A-FIB/CHADSVASC A-FIB History Current/History of A-Fib/PAF?: No Review of Systems Constitutional: Reports: Weakness, Fatigue; Denies: Fever Eyes: Reports: Other (Eye discomfort better with closing eyelids) ENT: Denies: Sore Throat Skin: Denies: Rash Pulmonary: Reports: Dyspnea (With exertion); Denies: Cough Cardiovascular: Reports: Lt Headedness; Denies: Chest Pain Gastrointestinal: Denies: Abdominal Pain, Diarrhea, Constipation Genitourinary: Denies: Dysuria Hematologic: Denies: Bruising Neurological: Reports: Other Symptoms (Finger tips have some paresthesias) Psych: Reports: Anxiety, Depression Physical Examination General Exam: Positive: Alert, Cooperative Eye Exam: Positive: EOMI; Negative: Sclera icteric ENT Exam: Positive: Atraumatic Neck Exam: Positive: Supple Chest Exam: Positive: Clear to auscultation; Negative: Rales, Rhonchi, Wheezing Heart Exam: Positive: Rate Normal, Regular Rhythm Abdomen Exam: Positive: Normal bowel sounds, Soft; Negative: Tenderness Extremity Exam: Negative: Edema Neuro Exam: Positive: Normal Speech Psych Exam: Positive: Mental status NL, Mood NL Vital Signs Vital Signs Date Time Temp Pulse Resp B/P (MAP) Pulse Ox O2 Delivery O2 Flow Rate FiO2 09/30/20 14:30 128/79 (95) 09/30/20 14:29 73 16 100 Room Air 09/30/20 12:40 100 09/30/20 11:29 97.9 Laboratory Data Labs 24H Laboratory Tests 2 09/30/20 12:54: POC Glucose (Misc Panel) 91, POC Sodium (Misc Panel) 142, POC Potassium (Misc Panel) 4.1, POC Chloride (Misc Panel) 104, POC Total CO2 (Misc Panel) 24.0, POC Blood Urea Nitrogen (Misc Panel 12, POC Ionized Calcium (Misc Panel) 4.9, POC Creatinine (Misc Panel) 0.7, POC Hematocrit (Misc Panel) 25.0L 09/30/20 12:55: Immature Granulocyte % (Auto) 0.2, Neutrophils (%) (Auto) 43.6, Lymphocytes (%) (Auto) 36.5, Monocytes (%) (Auto) 12.7H, Eosinophils (%) (Auto) 5.8H, Basophils (%) (Auto) 1.2H, Neutrophils # (Auto) 2.6, Lymphocytes # (Auto) 2.1, Monocytes # (Auto) 0.7, Eosinophils # (Auto) 0.3, Basophils # (Auto) 0.1, Nucleated Red Bl ood Cells % (auto) 0.0, Iron Level 11L, Total Iron Binding Capacity 426, Transferrin % Saturation 2.6L 09/30/20 14:39: Coronavirus (COVID-19)(PCR) NEGATIVE, Influenza Type A (RT-PCR) NEGATIVE, Influenza Type B (RT-PCR) NEGATIVE, Respiratory Syncytial Virus (PCR) NEGATIVE CBC/BMP Laboratory Tests 09/30/20 12:55 Assessment/Plan Mrs. Lazcano is a 34 year old female with recent miscarriage in July who is here for lightheadedness/dizziness, fatigue, and dyspnea, and found to have symptomatic iron deficiency anemia. Most likely secondary to her abnormally heavy menses. No signs of GI bleed, but will check a Hemoccult stool. Otherwise, will transfuse 2u of blood and start her on iron. Plan / VTE VTE Prophylaxis Ordered?: Yes Plan Plan 1. Acute symptomatic iron deficiency anemia -Secondary to abnormally heavy menses -Fatigue, dyspnea, lightheadedness/dizziness -Will transfuse 2 units of blood -Will check Hemoccult stool -Start on iron 2. Restless leg syndrome -Secondary to iron deficiency -Iron supplementation 3. Depression/anxiety -Continue venlafaxine 4. History of bariatric surgery -Check occult stool, if positive, patient may need scope 5. DVT ppx -SCD and TEDs due to symptomatic anemia Disposition: Pending improvement in H&H and symptoms WAYLON AVINA DO Sep 30, 2020 16:47
--- NOTE | 2020-09-30 19:17 | REP ---
INDICATION: heavy bleeding. COMPARISON: 08/03/2016 TECHNIQUE: Transabdominal imaging performed. FINDINGS: Bladder measured 7.1 x 1.8 x 6.6 cm. The uterus is anteverted measuring 7.7 x 4 x 7 cm. The central endometrial echogenic stripe is 9 mm thickness. Appearance is grossly unremarkable. No fluid in the endometrial cavity. No fluid in the cul-de-sac. The right ovary is 3.3 x 2.7 x 2.6 cm demonstrating multiple subcentimeter follicles. The left ovary is 4.4 x 2.7 x 3 cm and also shows multiple subcentimeter follicles. No mass or fluid adjacent to either ovary. No free fluid in the cul-de-sac. IMPRESSION: 1. The uterus is anteverted and endometrial stripe 9 mm thickness without endometrial fluid or nodularity/other abnormality. Uterus not enlarged and without contour abnormality or mass. No free fluid in the cul-de-sac. 2. Right ovary not enlarged and shows some subcentimeter follicles without mass or adjacent free fluid. 3. Left ovary not enlarged and shows some subcentimeter follicles without mass or adjacent free fluid. Normal color flow into both ovaries <Electronically signed by Herb Bernardo > 09/30/201913
[2020-09-30 23:40] LABS: HEMATOCRIT 31.7 % (36.0-47.0); HEMOGLOBIN 9.4 g/dl (12.0-15.5); MEAN CORPUSCULAR HEMOGLOBIN 22.3 pg (27.0-33.0); MEAN CORPUSCULAR HGB CONC 29.7 g/dl (32.0-36.5); MEAN CORPUSCULAR VOLUME 75.1 fl (80.0-96.0); PLATELET COUNT, AUTOMATED 416 10^3/uL (150-450); RED BLOOD COUNT 4.22 10^6/uL (4.00-5.40); WHITE BLOOD COUNT 9.8 10^3/uL (4.0-10.0)
[2020-10-01 06:00] VITALS: BP 126/77
[2020-10-01 06:23] LABS: HEMATOCRIT 33.8 % (36.0-47.0); MEAN CORPUSCULAR HEMOGLOBIN 22.2 pg (27.0-33.0); MEAN CORPUSCULAR HGB CONC 29.6 g/dl (32.0-36.5); MEAN CORPUSCULAR VOLUME 74.9 fl (80.0-96.0); PLATELET COUNT, AUTOMATED 377 10^3/uL (150-450); RED BLOOD COUNT 4.51 10^6/uL (4.00-5.40); WHITE BLOOD COUNT 7.6 10^3/uL (4.0-10.0)
[2020-10-01 06:45] LABS: BLOOD UREA NITROGEN 12 MG/DL (7-18); CARBON DIOXIDE LEVEL 28 MEQ/L (21-32); CHLORIDE LEVEL 111 MEQ/L (98-107); CREATININE FOR GFR 0.66 MG/DL (0.55-1.30); GLOMERULAR FILTRATION RATE > 60.0 (>60); GLUCOSE, FASTING 82 MG/DL (70-100); POTASSIUM SERUM 4.7 MEQ/L (3.5-5.1); SODIUM LEVEL 143 MEQ/L (136-145)
[2020-10-01] MEDS ORDERED: IRON SUCROSE 100MG 5ML VIAL (J1756 PER 1MG) IV ONE (07:20)
[2020-10-01] MEDS ORDERED: IRON SUCROSE 100 MG in NS 100 ML OVER 1 HR IV ONE (09:00)
[2020-10-01] MEDS ORDERED: FERROUS GLUCONATE 324 MG TAB PO SCH (09:00)
[2020-10-01] MEDS ORDERED: VENLAFAXINE **XR** 75MG CAPSULE PO SCH (09:00)
--- NOTE | 2020-10-01 21:14 | DS.PDOC ---
Discharge Summary General Date of Admission Sep 30, 2020 at 11:30 Date of Discharge Oct 01, 2020 Discharge Summary PROCEDURES PERFORMED DURING STAY: None ADMITTING DIAGNOSES: 1. Acute symptomatic iron deficiency anemia 2. Restless leg syndrome 3. Depression/anxiety 4. History of bariatric surgery DISCHARGE DIAGNOSES: 1. Acute symptomatic iron deficiency anemia 2. Restless leg syndrome 3. Depression/anxiety 4. History of bariatric surgery COMPLICATIONS/CHIEF COMPLAINT: Symptomatic Anemia. HISTORY OF PRESENT ILLNESS: Mrs. Lazcano is a 34 year old female with recent miscarriage in July who is here for lightheadedness/dizziness, fatigue, and dyspnea, and found to have symptomatic iron deficiency anemia. After her miscarriage in July, she had longer than normal menses and restless leg syndrome. She thought that it was related to her miscarriage. About a month ago, she started to notice dyspnea with exertion, easy fatigability, and lightheaded and dizziness. Then form 09/09/20 to 09/14/20, her menses was heavier than normal. About a week and a half ago, she started to have eye discomfort that improves with closing eye lids and tingling in her fingertips. Her PCP ordered CBC on 09/19/20 which demonstrated microcytic anemia with hemoglobin of 7.9 and MCV of 74.7. Baseline hemoglobin was 12. She is pending approval for IV iron. Otherwise, she had Bariatric Surgery in 2016. She was on supplements, but discontinued about a year ago due to the number of pills she was taking. She denies any changes in stool, blood in stool, stool turning darker than normal, abdominal pain, nausea, blood in urine, or coughing up blood. Patient will be placed in observation for acute symptomatic anemia. HOSPITAL COURSE: She received 2u pRBC and her hemoglobin responded appropriately and remained stable. She was feeling better. They dyspnea and dizziness improved. She felt ready for home. After giving her Venofer 100mg, she was discharged home. DISCHARGE MEDICATIONS: Please see below. ALLERGIES: Please see below. PHYSICAL EXAMINATION ON DISCHARGE: VITAL SIGNS: Please see below. GENERAL: Comfortable, in no apparent distress. HEENT: Head normocephalic/atraumatic, EOMI, sclera clear. NECK: Supple. RESPIRATORY: Lungs clear to auscultation bilaterally, no rales, wheeze or rhonchi. CARDIOVASCULAR: Regular rate and rhythm. ABDOMEN: Soft, nontender, no guarding or rebound tenderness. Normal bowel s ounds. MUSCLE SKELETAL: Muscle strength 5/5 in all extremities. NEUROLOGICAL: CN 312 grossly intact, no focal deficits noted. PSYCHOLOGICAL: Normal mood and affect LABORATORY DATA: Please see below. IMAGING: Radiologist interpretation US pelvis 1. The uterus is anteverted and endometrial stripe 9 mm thickness without endometrial fluid or nodularity/other abnormality. Uterus not enlarged and without contour abnormality or mass. No free fluid in the cul-de-sac. 2. Right ovary not enlarged and shows some subcentimeter follicles without mass or adjacent free fluid. 3. Left ovary not enlarged and shows some subcentimeter follicles without mass or adjacent free fluid. Normal color flow into both ovaries PROGNOSIS: Good ACTIVITY: As tolerated. DIET: As tolerated DISCHARGE PLAN: Home DISPOSITION: Home, Self-Care. DISCHARGE INSTRUCTIONS: 1. Follow up with PCP in 1 week ITEMS TO FOLLOWUP ON ON OUTPATIENT: 1. Hemoglobin 2. Heavy menses DISCHARGE CONDITION: Stable Total time spent on discharge planning, discharge summary, and medication reconciliation: 25 minutes Vital Signs/I&Os Vital Signs Date Time Temp Pulse Resp B/P (MAP) Pulse Ox O2 Delivery O2 Flow Rate FiO2 10/01/20 06:00 97.1 76 20 126/77 (93) 100 Room Air 09/30/20 12:40 100 I&O- Last 24 Hours up to 6 AM 10/01/20 06:00 Intake Total 2707 ml Balance 2707 ml Laboratory Data Labs 24H Laboratory Tests 2 09/30/20 23:35: Nucleated Red Blood Cells % (auto) 0.0 10/01/20 05:49: Nucleated Red Blood Cells % (auto) 0.0, Anion Gap 4L, Glomerular Filtration Rate > 60.0, Calcium Level 9.0 CBC/BMP Laboratory Tests 09/30/20 23:35 10/01/20 05:49 Discharge Medications Scheduled Pediatric Multivitamin No.49 (Flintstones Gummies) 1 Each Tab.chew, 1 CHW PO DAILY, (Reported) Venlafaxine HCl (Venlafaxine HCl ER) 150 Mg Cap.er.24h, 150 MG PO DAILY, (Repor scarlet) Scheduled PRN Melatonin (Melatonin) 3 Mg Tablet, 3 MG PO QHS PRN for RESTLESS LEGS, (Reported) Allergies Coded Allergies: morphine (Verified Allergy, Severe, anaphylaxis, 09/30/20) oseltamivir (Verified Allergy, Severe, hives, 09/30/20) Contrast Media (Verified Adverse Reaction, Intermediate, hgh blood pressure, 09/30/20) WOOL (FABRIC) (Verified Adverse Reaction, Intermediate, pruritis, 09/30/20) meningococcal vaccine A and C (Verified Adverse Reaction, Intermediate, ALTERED MENTAL STATE, 09/30/20) meningococcal vaccine B and C (Verified Adverse Reaction, Intermediate, ALTERED MENTAL STATE, 09/30/20) WAYLON AVINA DO Oct 01, 2020 21:14
--- NOTE | 2020-10-02 07:16 | ECGEPIP ---
[facility] - ED Test Date: 2020-09-30 Pat Name: JANEEN CLINE Department: Room: - Gender: Female Medical Stenographer: GUMARO : 1985 Requested By: BOBBY LAMBERT Order Number: [id number] Reading MD: Riley Jamil Measurements Intervals [place] Rate: 71 P: 17 WV: 154 QRS: 40 QRSD: 98 T: 41 QT: 394 QTc: 428 Interpretive Statements Normal sinus rhythm NO PRIORS FOR COMPARISON Electronically Signed on 10-02-2020 7:16:44 EDT by Riley Jamil
== END 2020-10-01 11:55 | disposition home or self-care (01) ==
LOC: M ED 11:29 → M MS5PR 11:30 → ENRESERV 16:32
PROVIDERS: ADMIT Internal Medicine; ATTEND Internal Medicine
DX: D50.9 Iron deficiency anemia, unspecified (principal); G25.81 Restless legs syndrome; F32.9 Major depressive disorder, single episode, unspecified; F41.9 Anxiety disorder, unspecified; Z98.84 Bariatric surgery status; N92.0 Excessive and frequent menstruation with regular cycle; Z87.59 Personal history of other complications of pregnancy, childbirth and the puerperium; F50.81 Binge eating disorder; Z79.899 Other long term (current) drug therapy; Z88.8 Allergy status to other drugs, medicaments and biological substances; Z88.7 Allergy status to serum and vaccine; Z88.5 Allergy status to narcotic agent; Z91.041 Radiographic dye allergy status; Z87.891 Personal history of nicotine dependence
CPT/HCPCS: 36415; 36430; 76856; 80047; 80048; 82728; 83550; 85025; 85027; 85046; 86850; 86900; 86901; 86920; 87631; 93005; 96374; 99285; J1756; P9016

== ENCOUNTER 2020-10-03 10:00 | Outpatient (CLI) | payer OTHER ==
[~2020-10-03] VITALS: Ht 165.1 cm; Wt 98.4 kg
[~2020-10-03 10:00] MED LIST changes: +ALBUTEROL SULFATE 2.5 MG/0.5 ML INH NEB SOLN INH PRN; +EPINEPHrine INJ 1 MG/ML 1ML AMP IM PRN; +FERRIC CARBOXYMALTOSE INJ 750 MG, VIAL MATE ADAPTER 1 EACH in NS 250 ML IV ONE; +FLINCHW16 PO; +MELA3TAB30 PO; +NS 1,000 ML IV SCH; +VENL150C43 PO; +diphenhydrAMINE 50MG/ML VIAL (J1200) IV PRN; +methylPREDNISolone 125MG 2ML VIAL IV PRN
[2020-10-03 10:10] VITALS: BP 153/89
[2020-10-03 11:10] VITALS: BP 138/96
[2020-10-03 12:45] VITALS: BP 158/93
== END 2020-10-03 12:50 | disposition home or self-care (01) ==
LOC: M INFU 10:00
PROVIDERS: ATTEND Physician Assistant
DX: D50.9 Iron deficiency anemia, unspecified (principal); Z88.6 Allergy status to analgesic agent; Z91.041 Radiographic dye allergy status; Z88.7 Allergy status to serum and vaccine
CPT/HCPCS: 96365; 96366; J1439

== ENCOUNTER → 2020-10-07 | Outpatient (CLI) | payer OTHER ==
[~2020-10-07] MED LIST changes: -ALBUTEROL SULFATE 2.5 MG/0.5 ML INH NEB SOLN INH PRN; -EPINEPHrine INJ 1 MG/ML 1ML AMP IM PRN; -FERRIC CARBOXYMALTOSE INJ 750 MG, VIAL MATE ADAPTER 1 EACH in NS 250 ML IV ONE; -NS 1,000 ML IV SCH; -diphenhydrAMINE 50MG/ML VIAL (J1200) IV PRN; -methylPREDNISolone 125MG 2ML VIAL IV PRN
[2020-10-07 13:50] LABS: HEMATOCRIT 37.3 % (36.0-47.0); HEMOGLOBIN 10.9 g/dl (12.0-15.5); MEAN CORPUSCULAR HEMOGLOBIN 22.5 pg (27.0-33.0); MEAN CORPUSCULAR HGB CONC 29.2 g/dl (32.0-36.5); MEAN CORPUSCULAR VOLUME 77.1 fl (80.0-96.0); PLATELET COUNT, AUTOMATED 381 10^3/uL (150-450); RED BLOOD COUNT 4.84 10^6/uL (4.00-5.40); WHITE BLOOD COUNT 8.5 10^3/uL (4.0-10.0)
== END ==
LOC: M LAB 12:52
PROVIDERS: ATTEND Physician Assistant
DX: D50.9 Iron deficiency anemia, unspecified (principal)

== ENCOUNTER 2020-10-10 12:14 | Outpatient (CLI) | payer OTHER ==
[~2020-10-10] VITALS: Ht 165.1 cm; Wt 98.4 kg
[~2020-10-10 12:14] MED LIST changes: +ALBUTEROL SULFATE 2.5 MG/0.5 ML INH NEB SOLN INH PRN; +EPINEPHrine INJ 1 MG/ML 1ML AMP IM PRN; +FERRIC CARBOXYMALTOSE INJ 750 MG, VIAL MATE ADAPTER 1 EACH in NS 250 ML IV ONE; +NS 1,000 ML IV SCH; +diphenhydrAMINE 50MG/ML VIAL (J1200) IV PRN; +methylPREDNISolone 125MG 2ML VIAL IV PRN
[2020-10-10 12:19] VITALS: BP 161/97
[2020-10-10 13:51] VITALS: BP 165/82
== END 2020-10-10 13:50 | disposition home or self-care (01) ==
LOC: M INFU 12:14
PROVIDERS: ATTEND Physician Assistant
DX: D50.9 Iron deficiency anemia, unspecified (principal); Z88.6 Allergy status to analgesic agent; Z88.7 Allergy status to serum and vaccine
CPT/HCPCS: 96365; J1439

== ENCOUNTER → 2020-10-23 | Outpatient (CLI) | payer OTHER ==
[~2020-10-23] MED LIST changes: -ALBUTEROL SULFATE 2.5 MG/0.5 ML INH NEB SOLN INH PRN; -EPINEPHrine INJ 1 MG/ML 1ML AMP IM PRN; -FERRIC CARBOXYMALTOSE INJ 750 MG, VIAL MATE ADAPTER 1 EACH in NS 250 ML IV ONE; -NS 1,000 ML IV SCH; -diphenhydrAMINE 50MG/ML VIAL (J1200) IV PRN; -methylPREDNISolone 125MG 2ML VIAL IV PRN
[2020-10-23 18:29] LABS: BASO # 0.1 10^3/uL (0.0-0.2); BASO % 1.5 % (0.0-1.0); EOS # 0.8 10^3/uL (0.0-0.5); EOS % 9.2 % (0.0-3.0); HEMATOCRIT 42.9 % (36.0-47.0); HEMOGLOBIN 12.6 g/dl (12.0-15.5); LYMPH # 2.3 10^3/uL (1.5-5.0); LYMPH % 27.7 % (24.0-44.0); MEAN CORPUSCULAR HEMOGLOBIN 24.7 pg (27.0-33.0); MEAN CORPUSCULAR HGB CONC 29.4 g/dl (32.0-36.5); MEAN CORPUSCULAR VOLUME 84.1 fl (80.0-96.0); MONO # 0.6 10^3/uL (0.0-0.8); MONO % 7.8 % (2.0-8.0); NEUTROPHILS # 4.3 10^3/uL (1.5-8.5); NEUTROPHILS % 53.4 % (36.0-66.0); PLATELET COUNT, AUTOMATED 402 10^3/uL (150-450); WHITE BLOOD COUNT 8.1 10^3/uL (4.0-10.0)
== END ==
LOC: M LAB 16:53
PROVIDERS: ATTEND Physician Assistant
DX: D50.9 Iron deficiency anemia, unspecified (principal)

== ENCOUNTER → 2020-11-07 | Outpatient (CLI) | payer OTHER ==
[2020-11-07 15:55] LABS: FREE T4 0.71 NG/DL (0.76-1.46); THYROID STIMULATING HORMONE 2.23 uIU/ML (0.358-3.740)
== END ==
LOC: M PLALAB 12:29
PROVIDERS: ATTEND Obstetrics & Gynecology
DX: N93.9 Abnormal uterine and vaginal bleeding, unspecified (principal)

== ENCOUNTER → 2020-11-28 | Outpatient (CLI) | payer OTHER ==
--- NOTE | 2020-11-28 16:01 | REP ---
INDICATION: AUB/N93.9. COMPARISON: 09/30/2020 TECHNIQUE: Transvesical and transvaginal scanning FINDINGS: The uterus is unchanged in size, shape, and echo pattern measuring approximately 9.8 x 4.6 x 5.7 cm. Once again, the endometrial echo complex is unremarkable in appearance measuring 8 mm in its greatest thickness. The right ovary measures 4.2 x 2.1 x 2.2 cm and is within normal limits. A 1.6 cm sized decompressing follicle is identified. Left ovary measures 2.6 x 2.9 x 3.6 cm and is within normal limits. IMPRESSION: No acute abnormality or significant change compared to the prior exam. <Electronically signed by Ramy Armando > 11/28/20 [id number]
== END ==
LOC: M WHC 15:21
PROVIDERS: ATTEND Obstetrics & Gynecology
DX: N39.3 Stress incontinence (female) (male) (principal)

== ENCOUNTER → 2021-03-11 | Outpatient (REF) | payer OTHER ==
[2021-03-11 12:42] LABS: BASO # 0.1 10^3/uL (0.0-0.2); BASO % 0.9 % (0.0-1.0); EOS # 0.5 10^3/uL (0.0-0.5); EOS % 7.1 % (0.0-3.0); HEMATOCRIT 45.6 % (36.0-47.0); HEMOGLOBIN 14.7 g/dl (12.0-15.5); LYMPH # 1.6 10^3/uL (1.5-5.0); LYMPH % 23.8 % (24.0-44.0); MEAN CORPUSCULAR HEMOGLOBIN 30.7 pg (27.0-33.0); MEAN CORPUSCULAR HGB CONC 32.2 g/dl (32.0-36.5); MEAN CORPUSCULAR VOLUME 95.2 fl (80.0-96.0); MONO # 0.7 10^3/uL (0.0-0.8); MONO % 9.8 % (2.0-8.0); NEUTROPHILS % 58.1 % (36.0-66.0); PLATELET COUNT, AUTOMATED 353 10^3/uL (150-450); RED BLOOD COUNT 4.79 10^6/uL (4.00-5.40); WHITE BLOOD COUNT 6.9 10^3/uL (4.0-10.0)
[2021-03-11 13:28] LABS: ALBUMIN 3.7 GM/DL (3.2-5.2); ALT/SGPT 28 U/L (12-78); BILIRUBIN,TOTAL 0.4 MG/DL (0.2-1.0); BLOOD UREA NITROGEN 10 MG/DL (7-18); CALCIUM LEVEL 9.2 MG/DL (8.5-10.1); CARBON DIOXIDE LEVEL 28 MEQ/L (21-32); CHLORIDE LEVEL 107 MEQ/L (98-107); CREATININE FOR GFR 0.69 MG/DL (0.55-1.30); GLOMERULAR FILTRATION RATE > 60.0 (>60); GLUCOSE, FASTING 71 MG/DL (70-100); IRON (FE) 113 UG/DL (50-170); PERCENT SATURATION 34.8 % (13.2-45.0); POTASSIUM SERUM 4.1 MEQ/L (3.5-5.1); SODIUM LEVEL 140 MEQ/L (136-145); TOTAL IRON BINDING CAPACITY 325 UG/DL (250-450); TOTAL PROTEIN 6.7 GM/DL (6.4-8.2)
== END ==
LOC: M SFHCADAM 09:26
PROVIDERS: ATTEND Family Medicine
DX: D50.9 Iron deficiency anemia, unspecified (principal); R53.83 Other fatigue

== ENCOUNTER → 2021-05-13 | Outpatient (REF) | payer OTHER, MEDICAID | LOC: M SFHCADAM 12:38 | PROVIDERS: ATTEND Family Medicine | DX: R05.9 Cough, unspecified (principal) ==

== ENCOUNTER → 2021-07-21 | Outpatient (CLI) | payer OTHER, MEDICAID | LOC: M PLALAB 08:26 | PROVIDERS: ATTEND Advanced Practice Midwife | DX: N91.2 Amenorrhea, unspecified (principal) ==

== ENCOUNTER → 2021-07-23 | Outpatient (CLI) | payer OTHER | LOC: M PLALAB 08:02 | PROVIDERS: ATTEND Advanced Practice Midwife | DX: N91.2 Amenorrhea, unspecified (principal) ==

== ENCOUNTER → 2021-08-18 | Outpatient (CLI) | payer OTHER ==
[2021-08-18 18:21] LABS: BASO # 0.1 10^3/uL (0.0-0.2); BASO % 0.6 % (0.0-1.0); EOS # 0.4 10^3/uL (0.0-0.5); EOS % 3.2 % (0.0-3.0); HEMATOCRIT 44.3 % (36.0-47.0); HEMOGLOBIN 14.1 g/dl (12.0-15.5); LYMPH # 2.1 10^3/uL (1.5-5.0); LYMPH % 16.4 % (24.0-44.0); MEAN CORPUSCULAR HGB CONC 31.8 g/dl (32.0-36.5); MONO # 1.1 10^3/uL (0.0-0.8); MONO % 8.3 % (2.0-8.0); NEUTROPHILS % 71.1 % (36.0-66.0); PLATELET COUNT, AUTOMATED 382 10^3/uL (150-450); RED BLOOD COUNT 4.87 10^6/uL (4.00-5.40); WHITE BLOOD COUNT 12.6 10^3/uL (4.0-10.0)
[2021-08-18 18:42] LABS: IRON (FE) 63 UG/DL (50-170)
[2021-08-18 18:55] LABS: VITAMIN B12 LEVEL 883 PG/ML (247-911)
[2021-08-18 18:56] LABS: FOLATE 16.4 NG/ML (>5.4)
[2021-08-18 19:34] LABS: HEPATITIS C VIRUS ABY INDEX 0.1 INDEX (<0.8); HIV 1&2 SCREEN CENTAUR NEGATIVE (NEGATIVE)
[2021-08-18 21:15] LABS: GC DNA AMPLIFICATION NEGATIVE (NEGATIVE)
== END ==
LOC: M PLALAB 15:22
PROVIDERS: ATTEND Advanced Practice Midwife
DX: Z34.91 Encounter for supervision of normal pregnancy, unspecified, first trimester (principal)

== ENCOUNTER 2021-09-11 17:31 | Emergency (ER) | payer MEDICAID, OTHER ==
[~2021-09-11] VITALS: Ht 165.1 cm; Wt 104.8 kg
[2021-09-11 18:33] LABS: BASO # 0.1 10^3/uL (0.0-0.2); BASO % 0.5 % (0.0-1.0); EOS # 0.6 10^3/uL (0.0-0.5); EOS % 5.7 % (0.0-3.0); HEMATOCRIT 41.1 % (36.0-47.0); HEMOGLOBIN 13.7 g/dl (12.0-15.5); LYMPH % 19.5 % (24.0-44.0); MEAN CORPUSCULAR HEMOGLOBIN 29.8 pg (27.0-33.0); MEAN CORPUSCULAR HGB CONC 33.3 g/dl (32.0-36.5); MEAN CORPUSCULAR VOLUME 89.3 fl (80.0-96.0); MONO # 0.7 10^3/uL (0.0-0.8); MONO % 6.4 % (2.0-8.0); NEUTROPHILS % 67.6 % (36.0-66.0); PLATELET COUNT, AUTOMATED 360 10^3/uL (150-450); WHITE BLOOD COUNT 10.4 10^3/uL (4.0-10.0)
[2021-09-11 19:30] VITALS: BP 131/94
== END 2021-09-11 19:39 | disposition home or self-care (01) ==
LOC: M ED 17:31
DX: O46.91 Antepartum hemorrhage, unspecified, first trimester (principal); Z87.59 Personal history of other complications of pregnancy, childbirth and the puerperium; O99.841 Bariatric surgery status complicating pregnancy, first trimester; Z3A.12 12 weeks gestation of pregnancy; Z91.041 Radiographic dye allergy status; Z88.7 Allergy status to serum and vaccine; Z79.899 Other long term (current) drug therapy

== ENCOUNTER → 2021-10-29 | Outpatient (CLI) | payer OTHER | LOC: M WHC 06:53 | PROVIDERS: ATTEND Advanced Practice Midwife | DX: Z34.92 Encounter for supervision of normal pregnancy, unspecified, second trimester (principal); Z3A.19 19 weeks gestation of pregnancy ==

== ENCOUNTER → 2021-11-12 | Outpatient (CLI) | payer OTHER | LOC: M WHC 14:55 | PROVIDERS: ATTEND Advanced Practice Midwife | DX: Z34.92 Encounter for supervision of normal pregnancy, unspecified, second trimester (principal) ==

== ENCOUNTER → 2021-12-01 | Outpatient (CLI) | payer OTHER ==
[2021-12-01 14:04] LABS: HEMATOCRIT 36.8 % (36.0-47.0); HEMOGLOBIN 11.9 g/dl (12.0-15.5); MEAN CORPUSCULAR HEMOGLOBIN 29.2 pg (27.0-33.0); MEAN CORPUSCULAR HGB CONC 32.3 g/dl (32.0-36.5); MEAN CORPUSCULAR VOLUME 90.4 fl (80.0-96.0); PLATELET COUNT, AUTOMATED 352 10^3/uL (150-450); RED BLOOD COUNT 4.07 10^6/uL (4.00-5.40); WHITE BLOOD COUNT 10.9 10^3/uL (4.0-10.0)
[2021-12-01 14:23] LABS: ALT/SGPT 17 U/L (12-78); BILIRUBIN,TOTAL 0.2 MG/DL (0.2-1.0); CREATININE FOR GFR 0.62 MG/DL (0.55-1.30); GLOMERULAR FILTRATION RATE > 60.0 (>60); LDH LACTATE DEHYDROGENASE 146 U/L (84-246); URIC ACID 3.9 MG/DL (2.6-6.0)
[2021-12-01 14:31] LABS: CREATININE,RANDOM URINE 58.4 MG/DL; TOTAL PROTEIN,RANDOM URINE 9.3 MG/DL (0.0-12.0)
[2021-12-01 15:21] LABS: HEMOGLOBIN A1c 5.6 %
== END ==
LOC: M PLALAB 09:23
PROVIDERS: ATTEND Advanced Practice Midwife
DX: O13.9 Gestational [pregnancy-induced] hypertension without significant proteinuria, unspecified trimester (principal)

== ENCOUNTER → 2022-01-26 | Outpatient (CLI) | payer OTHER, MEDICAID ==
[2022-01-26 14:01] LABS: HEMATOCRIT 33.1 % (36.0-47.0); HEMOGLOBIN 10.1 g/dl (12.0-15.5); MEAN CORPUSCULAR HEMOGLOBIN 25.8 pg (27.0-33.0); MEAN CORPUSCULAR HGB CONC 30.5 g/dl (32.0-36.5); MEAN CORPUSCULAR VOLUME 84.4 fl (80.0-96.0); PLATELET COUNT, AUTOMATED 345 10^3/uL (150-450); RED BLOOD COUNT 3.92 10^6/uL (4.00-5.40); WHITE BLOOD COUNT 10.7 10^3/uL (4.0-10.0)
== END ==
LOC: M PLALAB 09:23
PROVIDERS: ATTEND Obstetrics & Gynecology
DX: O99.843 Bariatric surgery status complicating pregnancy, third trimester (principal)

== ENCOUNTER → 2022-02-09 | Outpatient (REF) | payer OTHER | LOC: M WUC 12:37 | PROVIDERS: ATTEND Physician Assistant | DX: J06.9 Acute upper respiratory infection, unspecified (principal); Z20.828 Contact with and (suspected) exposure to other viral communicable diseases ==

== ENCOUNTER → 2022-02-26 | Outpatient (REF) | payer OTHER ==
[~2022-02-26] MED LIST changes: +BUSP10TA79 PO; +COLA100C5 PO; +FOLTTAB9 PO
== END ==
LOC: M SFHCWAGY 09:46
PROVIDERS: ATTEND Advanced Practice Midwife
DX: Z34.93 Encounter for supervision of normal pregnancy, unspecified, third trimester (principal)

== ENCOUNTER 2022-03-10 08:15 | Outpatient (CLI) | payer OTHER ==
[~2022-03-10] VITALS: Ht 165.1 cm; Wt 117.0 kg
[~2022-03-10 08:15] MED LIST changes: -BUSP10TA79 PO; -COLA100C5 PO; -FOLTTAB9 PO
[2022-03-10 08:57] LABS: HEMATOCRIT 30.8 % (36.0-47.0); HEMOGLOBIN 9.4 g/dl (12.0-15.5); MEAN CORPUSCULAR HEMOGLOBIN 23.2 pg (27.0-33.0); MEAN CORPUSCULAR HGB CONC 30.5 g/dl (32.0-36.5); PLATELET COUNT, AUTOMATED 400 10^3/uL (150-450); RED BLOOD COUNT 4.05 10^6/uL (4.00-5.40); WHITE BLOOD COUNT 9.5 10^3/uL (4.0-10.0)
[2022-03-10 09:26] LABS: INR 0.96
[2022-03-10 09:27] LABS: PARTIAL THROMBOPLASTIN TIME 24.6 SECONDS (24.8-34.2)
[2022-03-10] MEDS ORDERED: COLA100C5 PO (10:29)
[2022-03-10] MEDS ORDERED: FOLTTAB9 PO (10:29)
[2022-03-10] MEDS ORDERED: BUSP10TA79 PO (10:29)
== END 2022-03-10 12:50 | disposition home or self-care (01) ==
LOC: M LDO 08:15
PROVIDERS: ATTEND Advanced Practice Midwife
DX: O09.513 Supervision of elderly primigravida, third trimester (principal); O34.219 Maternal care for unspecified type scar from previous cesarean delivery; W10.9XXA Fall (on) (from) unspecified stairs and steps, initial encounter; Y92.9 Unspecified place or not applicable; Y99.9 Unspecified external cause status; Z3A.37 37 weeks gestation of pregnancy

== ENCOUNTER 2022-03-14 18:05 | Inpatient (IN) | payer OTHER ==
[~2022-03-14] VITALS: Ht 165.1 cm; Wt 116.6 kg
[2022-03-14] VITALS (9 sets, daily range): BP systolic 132–159; BP diastolic 74–96
[~2022-03-14 18:05] MED LIST changes: +BUSP10TA79 PO; +COLA100C5 PO; +FOLTTAB9 PO
[2022-03-14] MEDS ORDERED: LIDOCAINE 1% MDV 20ML VIAL As Ordered ONE (18:49)
[2022-03-14] MEDS ORDERED: OXYTOCIN INJ 10UNITS/ML 1ML VIAL IM PRN (19:10)
[2022-03-14] MEDS ORDERED: LIDOCAINE 1% MDV 20ML VIAL INFIL PRN (19:10)
[2022-03-14] MEDS ORDERED: DOCUSATE SODIUM 100MG CAPSULE PO PRN (19:45)
[2022-03-14] MEDS ORDERED: DIBUCAINE 1% OINTMENT 30GM TOP PRN (19:45)
[2022-03-14] MEDS ORDERED: METHYLERGONOVINE MALEATE 0.2 MG TAB PO PRN (19:45)
[2022-03-14] MEDS ORDERED: ACETAMINOPHEN TAB 650MG DOSE (2X325MG) PO PRN (19:45)
[2022-03-14] MEDS ORDERED: RHOGAM 300MCG (1500IU) INJ IM SCH (19:45)
[2022-03-14] MEDS: ACETAMINOPHEN 500 MG TAB PO PRN (22:13)
[2022-03-15 06:00] VITALS: BP 142/82
[2022-03-15] MEDS: PRENATAL VITAMINS CHEWABLE TABLET PO SCH (08:19)
[2022-03-15 08:30] VITALS: BP 142/82
[2022-03-15] MEDS: ACETAMINOPHEN 500 MG TAB PO PRN ×2 (08:39→15:40)
[2022-03-15 09:18] LABS: HEMATOCRIT 29.9 % (36.0-47.0); HEMOGLOBIN 8.9 g/dl (12.0-15.5); MEAN CORPUSCULAR HEMOGLOBIN 22.7 pg (27.0-33.0); MEAN CORPUSCULAR HGB CONC 29.8 g/dl (32.0-36.5); MEAN CORPUSCULAR VOLUME 76.3 fl (80.0-96.0); PLATELET COUNT, AUTOMATED 304 10^3/uL (150-450); RED BLOOD COUNT 3.92 10^6/uL (4.00-5.40); WHITE BLOOD COUNT 15.3 10^3/uL (4.0-10.0)
[2022-03-15] MEDS ORDERED: ANUSOL HC CREAM 30GM TOP PRN (12:25)
[2022-03-15] MEDS ORDERED: MOM 30ML SUSPENSION UDC PO PRN (12:25)
[2022-03-15] MEDS ORDERED: DOCUSATE SODIUM 100MG CAPSULE PO PRN (12:25)
[2022-03-15 18:00] VITALS: BP 138/81
[2022-03-15 21:12] VITALS: BP 135/84
[2022-03-16 06:00] VITALS: BP 129/74
[2022-03-16] MEDS: PRENATAL VITAMINS CHEWABLE TABLET PO SCH (08:16)
[2022-03-16] MEDS: ACETAMINOPHEN 500 MG TAB PO PRN (08:22)
[2022-03-16] MEDS ORDERED: MEASLES,MUMPS,RUBELLA VACCINE INJ (MMR-II) SC.IMMUN ONE (09:00)
== END 2022-03-16 12:45 | disposition home or self-care (01) | DRG 560 ==
LOC: M LDO 18:05 → M LDI 18:26 → M OBS 22:08
PROVIDERS: ADMIT Advanced Practice Midwife; ATTEND Advanced Practice Midwife
PROC: 10E0XZZ Delivery of Products of Conception, External Approach (ICD-10-PCS; principal; 2022-03-14)
PROC: 0HQ9XZZ Repair Perineum Skin, External Approach (ICD-10-PCS; 2022-03-14)
DX: O34.211 Maternal care for low transverse scar from previous cesarean delivery (principal); O99.344 Other mental disorders complicating childbirth; F32.A Depression, unspecified; O09.523 Supervision of elderly multigravida, third trimester; O99.844 Bariatric surgery status complicating childbirth; O99.02 Anemia complicating childbirth; D64.9 Anemia, unspecified; F41.9 Anxiety disorder, unspecified; Z79.899 Other long term (current) drug therapy; Z88.5 Allergy status to narcotic agent; Z88.7 Allergy status to serum and vaccine; Z88.8 Allergy status to other drugs, medicaments and biological substances; Z91.041 Radiographic dye allergy status; Z91.048 Other nonmedicinal substance allergy status; Z3A.38 38 weeks gestation of pregnancy; O70.0 First degree perineal laceration during delivery; Z37.0 Single live birth

== ENCOUNTER → 2022-06-21 | Outpatient (REF) | payer OTHER, MEDICAID | LOC: M LAB REF 18:23 | PROVIDERS: ATTEND Student in an Organized Health Care Education/Training Program | DX: R30.0 Dysuria (principal) ==

== ENCOUNTER → 2022-07-13 | Outpatient (REF) | payer OTHER ==
[2022-07-13 13:36] LABS: BASO # 0.1 10^3/uL (0.0-0.2); BASO % 1.6 % (0.0-1.0); EOS # 0.5 10^3/uL (0.0-0.5); EOS % 6.7 % (0.0-3.0); HEMATOCRIT 37.2 % (36.0-47.0); HEMOGLOBIN 10.5 g/dl (12.0-15.5); LYMPH # 2.1 10^3/uL (1.5-5.0); LYMPH % 28.1 % (24.0-44.0); MEAN CORPUSCULAR HEMOGLOBIN 21.5 pg (27.0-33.0); MEAN CORPUSCULAR HGB CONC 28.2 g/dl (32.0-36.5); MEAN CORPUSCULAR VOLUME 76.1 fl (80.0-96.0); MONO # 0.7 10^3/uL (0.0-0.8); MONO % 9.2 % (2.0-8.0); NEUTROPHILS # 4.1 10^3/uL (1.5-8.5); NEUTROPHILS % 54.3 % (36.0-66.0); PLATELET COUNT, AUTOMATED 547 10^3/uL (150-450); RED BLOOD COUNT 4.89 10^6/uL (4.00-5.40); WHITE BLOOD COUNT 7.6 10^3/uL (4.0-10.0)
== END ==
LOC: M SFHCADAM 08:42
PROVIDERS: ATTEND Family Medicine
DX: Z86.2 Personal history of diseases of the blood and blood-forming organs and certain disorders involving the immune mechanism (principal)

== ENCOUNTER 2022-07-27 08:40 | Outpatient (CLI) | payer OTHER ==
[~2022-07-27 08:40] MED LIST changes: +ALBUTEROL SULFATE 2.5MG/0.5ML INH NEB SOLN INH PRN; +EPINEPHrine INJ 1 MG/ML 1ML AMP IM PRN; +diphenhydrAMINE 50MG/ML VIAL IV PRN; +methylPREDNISolone 125MG 2ML VIAL IV PRN
[2022-07-27 08:51] VITALS: BP 156/100
[2022-07-27] MEDS ORDERED: IRON SUCROSE 25 MG in NS 23.75 ML IV ONE (09:00)
[2022-07-27] MEDS ORDERED: NS IV ONE (09:00)
[2022-07-27] MEDS ORDERED: IRON SUCROSE IV ONE (09:00)
[2022-07-27] MEDS ORDERED: IRON SUCROSE 200 MG in NS 100 ML OVER 1 HR IV ONE (09:15)
[2022-07-27 10:16] VITALS: BP 142/98
== END 2022-07-27 10:18 | disposition home or self-care (01) ==
LOC: M INFU 08:40
PROVIDERS: ATTEND Family Medicine
DX: D50.9 Iron deficiency anemia, unspecified (principal); Z88.7 Allergy status to serum and vaccine; Z88.5 Allergy status to narcotic agent; Z88.8 Allergy status to other drugs, medicaments and biological substances
CPT/HCPCS: 96365; J1756

== ENCOUNTER → 2022-08-17 | Outpatient (REF) | payer OTHER ==
[~2022-08-17] MED LIST changes: -ALBUTEROL SULFATE 2.5MG/0.5ML INH NEB SOLN INH PRN; -EPINEPHrine INJ 1 MG/ML 1ML AMP IM PRN; -diphenhydrAMINE 50MG/ML VIAL IV PRN; -methylPREDNISolone 125MG 2ML VIAL IV PRN
[2022-08-17 13:49] LABS: BASO # 0.1 10^3/uL (0.0-0.2); BASO % 0.9 % (0.0-1.0); EOS # 0.4 10^3/uL (0.0-0.5); EOS % 3.4 % (0.0-3.0); HEMATOCRIT 36.9 % (36.0-47.0); HEMOGLOBIN 10.6 g/dl (12.0-15.5); LYMPH # 1.7 10^3/uL (1.5-5.0); LYMPH % 15.6 % (24.0-44.0); MEAN CORPUSCULAR HEMOGLOBIN 21.5 pg (27.0-33.0); MEAN CORPUSCULAR HGB CONC 28.7 g/dl (32.0-36.5); MEAN CORPUSCULAR VOLUME 74.7 fl (80.0-96.0); MONO # 0.7 10^3/uL (0.0-0.8); MONO % 6.6 % (2.0-8.0); NEUTROPHILS # 7.8 10^3/uL (1.5-8.5); NEUTROPHILS % 73.2 % (36.0-66.0); PLATELET COUNT, AUTOMATED 497 10^3/uL (150-450); RED BLOOD COUNT 4.94 10^6/uL (4.00-5.40); WHITE BLOOD COUNT 10.6 10^3/uL (4.0-10.0)
== END ==
LOC: M SFHCADAM 10:27
PROVIDERS: ATTEND Family Medicine
DX: E61.1 Iron deficiency (principal)

== ENCOUNTER 2022-08-23 14:05 | Outpatient (CLI) | payer OTHER ==
[~2022-08-23] VITALS: Ht 165.1 cm; Wt 108.4 kg
[2022-08-23 14:00] VITALS: BP 122/70; O2SAT 98
[~2022-08-23 14:05] MED LIST changes: +ALBUTEROL SULFATE 2.5MG/0.5ML INH NEB SOLN INH PRN; +EPINEPHrine INJ 1 MG/ML 1ML AMP IM PRN; +diphenhydrAMINE 50MG/ML VIAL IV PRN; +methylPREDNISolone 125MG 2ML VIAL IV PRN
[2022-08-23] MEDS ORDERED: IRON SUCROSE 200 MG in NS 100 ML OVER 1 HR IV ONE (14:30)
[2022-08-23] MEDS ORDERED: NS 1,000 ML IV SCH (14:30)
== END 2022-08-23 15:30 | disposition home or self-care (01) ==
LOC: M INFU 14:05
PROVIDERS: ATTEND Family Medicine
DX: D50.9 Iron deficiency anemia, unspecified (principal); Z88.7 Allergy status to serum and vaccine; Z88.5 Allergy status to narcotic agent; Z88.8 Allergy status to other drugs, medicaments and biological substances
CPT/HCPCS: 96365; J1756

== ENCOUNTER → 2022-10-28 | Outpatient (REF) | payer OTHER ==
[~2022-10-28] MED LIST changes: -ALBUTEROL SULFATE 2.5MG/0.5ML INH NEB SOLN INH PRN; +CITRATE; -EPINEPHrine INJ 1 MG/ML 1ML AMP IM PRN; +FERR225T2 PO; +FOLI1TAB11 PO; +MULTTAB20 PO; +VYVA30CA4; +[UNRECOGNIZED DRUG - OTHER]; -diphenhydrAMINE 50MG/ML VIAL IV PRN; -methylPREDNISolone 125MG 2ML VIAL IV PRN
== END ==
LOC: M SFHCWAGY 17:13
PROVIDERS: ATTEND Nurse Practitioner Family
DX: N73.9 Female pelvic inflammatory disease, unspecified (principal)

== ENCOUNTER → 2022-11-03 | Outpatient (REF) | payer OTHER | LOC: M SFHCWAGY 17:12 | PROVIDERS: ATTEND Nurse Practitioner Family | DX: R35.0 Frequency of micturition (principal) ==

== ENCOUNTER → 2022-12-31 | Outpatient (CLI) | payer OTHER ==
[~2022-12-31] MED LIST changes: +MECL-209 PO; -MECL1TAB31 PO
== END ==
LOC: M EKG 12:22
PROVIDERS: ATTEND Registered Nurse
DX: E66.01 Morbid (severe) obesity due to excess calories (principal)

== ENCOUNTER → 2023-11-10 | Outpatient (CLI) | payer MEDICAID, OTHER ==
[~2023-11-10] MED LIST changes: +BUPR-69; -EFFE37.5 PO; +EFFE37.52 PO; +PHEN-239
[2023-11-10 15:26] LABS: BASO # 0.1 10^3/uL (0.0-0.2); BASO % 0.9 % (0.0-1.0); EOS # 0.6 10^3/uL (0.0-0.5); EOS % 6.8 % (0.0-3.0); HEMATOCRIT 49.6 % (36.0-47.0); HEMOGLOBIN 16.1 g/dl (12.0-15.5); LYMPH # 2.1 10^3/uL (1.5-5.0); LYMPH % 24.7 % (24.0-44.0); MEAN CORPUSCULAR HEMOGLOBIN 30.2 pg (27.0-33.0); MEAN CORPUSCULAR HGB CONC 32.5 g/dl (32.0-36.5); MEAN CORPUSCULAR VOLUME 93.1 fl (80.0-96.0); MONO # 0.7 10^3/uL (0.0-0.8); MONO % 7.6 % (2.0-8.0); NEUTROPHILS # 5.2 10^3/uL (1.5-8.5); NEUTROPHILS % 59.7 % (36.0-66.0); PLATELET COUNT, AUTOMATED 379 10^3/uL (150-450); RED BLOOD COUNT 5.33 10^6/uL (4.00-5.40); WHITE BLOOD COUNT 8.7 10^3/uL (4.0-10.0)
[2023-11-10 15:46] LABS: ALBUMIN 4.1 G/DL (3.2-5.2); ALKALINE PHOSPHATASE 172 U/L (46-116); ALT/SGPT 20 U/L (7.0-40); AST/SGOT 16 U/L (<34); BILIRUBIN,TOTAL 0.4 MG/DL (0.3-1.2); BLOOD UREA NITROGEN 11 MG/DL (9-23); CALCIUM LEVEL 10.2 MG/DL (8.5-10.1); CARBON DIOXIDE LEVEL 26 MMOL/L (20-31); CHLORIDE LEVEL 107 MMOL/L (98-107); CHOLESTEROL LEVEL 242 MG/DL (<200); CHOLESTEROL RISK RATIO 4.01 (<5); CREATININE FOR GFR 0.75 MG/DL (0.55-1.30); GLOMERULAR FILTRATION RATE > 60.0 (>60); GLUCOSE, FASTING 118 MG/DL (60-100); HDL CHOLESTEROL 60.2 MG/DL (>40); IRON (FE) 127 UG/DL (50-170); LDL CHOLESTEROL 116.8 MG/DL (<100); MAGNESIUM LEVEL 1.8 MG/DL (1.8-2.4); NON-HDL-C 181.8 MG/DL; PERCENT SATURATION 36.3 % (13.2-45.0); POTASSIUM SERUM 3.8 MMOL/L (3.5-5.1); SODIUM LEVEL 140 MMOL/L (136-145); TOTAL IRON BINDING CAPACITY 350 UG/DL (250-425); TOTAL PROTEIN 7.4 G/DL (5.7-8.2); TRIGLYCERIDES LEVEL 325 MG/DL (<150)
[2023-11-10 15:50] LABS: THYROID STIMULATING HORMONE 2.711 uIU/ML (0.55-4.78)
[2023-11-10 15:51] LABS: FERRITIN 16.3 NG/ML (7.3-270.7); VITAMIN B12 LEVEL 1227 PG/ML (211-911)
[2023-11-10 15:52] LABS: FREE T4 1.05 NG/DL (0.89-1.76)
[2023-11-10 15:53] LABS: FOLATE > 24.00 NG/ML (>5.4)
== END ==
LOC: M LAB 14:47
PROVIDERS: ATTEND Registered Nurse
DX: Z00.01 Encounter for general adult medical examination with abnormal findings (principal)

== ENCOUNTER → 2024-03-04 | Outpatient (REF) | payer OTHER, MEDICAID | LOC: M LAB REF 18:01 | PROVIDERS: ATTEND Student in an Organized Health Care Education/Training Program | DX: R30.0 Dysuria (principal) ==